=== PATIENT | male | born 1955 | race African-American/Black ===

== ENCOUNTER → 2018-05-12 | Outpatient (CLI) | payer MEDICARE, OTHER ==
[2014-07-15 11:12] VITALS: BP 142/102
[~2018-05-12] MED LIST: ALPR1TAB2 PO; AMLO10TA8 PO; OXYC1TAB22 PO; TAMS0.4C97 PO; TRIA1TAB2 PO
--- NOTE | 2018-05-12 13:12 | RAD ---
Indication:PAIN RIGHT KNEE NO KNOWN INJURY TECHNIQUE: 3 views of the right knee COMPARISON:None FINDINGS: No acute fracture or dislocation. Mild tricompartmental osteoarthritis trace suprapatellar effusion. 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 IMPRESSION: Minimal tricompartmental osteoarthritis. Electronically signed by: Da Conner DO (05/12/2018 1:07 PM) [id number]
== END | disposition home or self-care (01) ==
LOC: RAD 11:25
PROVIDERS: ATTEND Nurse Practitioner Family
DX: M17.11 Unilateral primary osteoarthritis, right knee (principal); I70.8 Atherosclerosis of other arteries
CPT/HCPCS: 73562

== ENCOUNTER 2018-10-12 02:16 | Emergency (ER) | payer MEDICARE, OTHER ==
[~2018-10-12] VITALS: Ht 175.3 cm; Wt 86.2 kg
[2018-10-12 03:11] LABS: BASO # 0.1 x10^3/uL (0.0-0.2); BASO % 2 % (0-3); EOS # 0.1 x10^3/uL (0.0-0.7); EOS % 2 % (0-3); HEMOGLOBIN 12.6 g/dL (13.0-17.5); LYMPH # 1.2 x10^3/uL (1.0-4.8); LYMPH % 30 % (24-48); MEAN CORPUSCULAR HEMOGLOBIN 26 pg (25-35); MEAN CORPUSCULAR HGB CONC 33 g/dL (31-37); MEAN CORPUSCULAR VOLUME 79 fL (79-100); MONO # 0.4 x10^3/uL (0.0-1.1); MONO % 10 % (0-9); NEUT # 2.4 x10^3uL (1.8-7.7); NEUT % 57 % (31-73); PLATELET COUNT 338 x10^3/uL (140-400); RED BLOOD COUNT 4.79 x10^6/uL (4.30-5.70); WHITE BLOOD COUNT 4.2 x10^3/uL (4.0-11.0)
[2018-10-12 03:11] LABS: BILIRUBIN,URINE NEGATIVE (NEG); CLARITY,URINE CLEAR; COLOR,URINE YELLOW; NITRITE,URINE NEGATIVE (NEG); PROTEIN,URINE NEGATIVE (NEG-TRACE); UROBILINOGEN,URINE 0.2 mg/dL (0.2 mg/dL)
[2018-10-12 03:29] LABS: BACTERIA,URINE 0 /HPF (0-FEW); RBC,URINE OCC /HPF (0-2); SQUAMOUS EPITHELIAL CELL,UR OCC /LPF; WBC,URINE 0 /HPF (0-4)
[2018-10-12] MEDS ORDERED: fentaNYL PF VIAL 100 MCG/2 ML VIAL IV ONE (03:30)
[2018-10-12] MEDS ORDERED: IV NORMAL SALINE 1000ML BAG 1,000 ML IV ONE (03:30)
[2018-10-12 03:48] LABS: CALCIUM 8.4 mg/dL (8.5-10.1); CREATININE 1.3 mg/dL (0.7-1.3); GFR 67.7; POTASSIUM 3.4 mmol/L (3.5-5.1)
[2018-10-12 03:53] LABS: ALBUMIN 3.6 g/dL (3.4-5.0); ALBUMIN/GLOBULIN RATIO 1.1 (1.0-1.7); TOTAL BILIRUBIN 0.8 mg/dL (0.2-1.0); TOTAL PROTEIN 6.9 g/dL (6.4-8.2)
[2018-10-12 04:30] VITALS: BP 164/85
[2018-10-12] MEDS ORDERED: CONTRAST GIVEN. MC PRN (04:30)
[2018-10-12] MEDS ORDERED: IOHEXOL 300 MG/ML 100ML VIAL. IV ONE (05:00)
--- NOTE | 2018-10-12 05:04 | RAD ---
INDICATION: Left lower quadrant pain and constipation COMPARISON: January 2014 TECHNIQUE: Axial CT images obtained through the abdomen and pelvis with contrast. One or more of the following individualized dose reduction techniques were utilized for this examination: 1. Automated exposure control; 2. Adjustment of the mA and/or kV according to patient size; 3. Use of iterative reconstruction technique. FINDINGS: Scattered calcific atherosclerosis. No intrahepatic bile duct dilation. The pancreas enhances. Spleen unremarkable. Left sided perinephric fluid with some prominence the left ureter. 2 mm calcification within the urinary bladder. No right-sided hydronephrosis. Colonic diverticulosis. Appendix without definite adjacent inflammatory changes. No dilated loops of bowel to suggest obstruction. Degenerative changes the spine with multilevel central canal and neural foraminal stenosis. IMPRESSION: 1. Edema and fluid is seen adjacent to left kidney with some prominence of the left ureter. There is also a 2 mm calcification seen within the urinary bladder. This could be secondary to causes such as a recently passed left ureter stone with calyceal rupture. Would also correlate with symptoms and lab markers to ensure that there is not infectious etiology. Electronically signed by: Glen Wagner MD (10/12/2018 5:01 AM) [facility]
[2018-10-12] MEDS ORDERED: HYDR-3164 PO (05:16)
[2018-10-12] MEDS ORDERED: TAMS0.4C97 PO (05:17)
[2018-10-12] MEDS ORDERED: CEPH500C PO (05:17)
--- NOTE | 2018-10-12 05:52 | PHYS DOC ---
Past Medical History Past Medical History: Anxiety, Bipolar, Constipation, CVA, Depression, GERD, Hypertension Past Surgical History: Other Additional Past Surgical Histo: inguinal hernia repair Alcohol Use: None Drug Use: None, Cocaine Adult General Chief Complaint Chief Complaint: ABDOMINAL PAIN HPI HPI Patient is a 63 year old male presents with left lower quadrant pain times one day worse last couple hours rates the left flank no dysuria but feels the sensation of having to empty his bladder but cannot do so also was having some tenesmus sharp worse with time Review of Systems Review of Systems Constitutional: Denies fever or chills [] Eyes: Denies change in visual acuity, redness, or eye pain [] HENT: Denies nasal congestion or sore throat [] Respiratory: Denies cough or shortness of breath [] Cardiovascular: No additional information not addressed in HPI [] Integument: Denies rash or skin lesions [] Neurologic: Denies headache, focal weakness or sensory changes [] Endocrine: Denies polyuria or polydipsia [] All other systems were reviewed and found to be within normal limits, except as documented in this note. Current Medications Current Medications Current Medications Medications (Trade) Dose Ordered Sig/Grace Start Time Stop Time Status Last Admin Dose Admin Fentanyl Citrate (Fentanyl 2ml Vial) 50 mcg 1X ONCE 10/12/18 03:30 10/12/18 03:31 DC 10/12/18 03:18 50 MCG Info (CONTRAST GIVEN -- Rx MONITORING) 1 each PRN DAILY PRN 10/12/18 04:30 10/12/18 05:29 DC Iohexol (Omnipaque 300 Mg/ml) 75 ml 1X ONCE 10/12/18 05:00 10/12/18 05:01 DC 10/12/18 04:26 75 ML Sodium Chloride 1,000 ml @ 1,000 mls/hr 1X ONCE 10/12/18 03:30 10/12/18 04:29 DC 10/12/18 03:16 1,000 MLS/HR Allergies Allergies Allergies Coded Allergies Type Severity Reaction Last Updated Verified No Known Drug Allergies 05/03/13 No Physical Exam Physical Exam Constitutional: Well developed, well nourished, no acute distress, non-toxic appearance. [] HENT: Normocephalic, atraumatic, bilateral external ears normal, oropharynx moist, no oral exudates, nose normal. [] Eyes: PERRLA, EOMI, conjunctiva normal, no discharge. [] Neck: Normal range of motion, no tenderness, supple, no stridor. [] Cardiovascular:Heart rate regular rhythm, no murmur [] Lungs & Thorax: Bilateral breath sounds clear to auscultation [] Abdomen: Bowel sounds normal, soft, mild left lower quadrant tenderness, no masses, no pulsatile masses. [] Skin: Warm, dry, no erythema, no rash. [] Back: No tenderness, no CVA tenderness. [] Extremities: No tenderness, no cyanosis, no clubbing, ROM intact, no edema. [] Neurologic: Alert and oriented X 3, normal motor function, normal sensory function, no focal deficits noted. [] Psychologic: Affect normal, judgement normal, mood normal. [] Current Patient Data Vital Signs Vital Signs Date Time Temp Pulse Resp B/P (MAP) Pulse Ox O2 Delivery O2 Flow Rate FiO2 10/12/18 04:30 68 18 164/85 (111) 99 Room Air 10/12/18 02:38 97.9 97.9 Lab Values Laboratory Tests Test 10/12/18 02:26 10/12/18 02:35 10/12/18 03:30 Urine Collection Type Unknown Urine Color Yellow Urine Clarity Clear Urine pH 7.0 Urine Specific [place] 1.020 Urine Protein Negative mg/dL (NEG-TRACE) Urine Glucose (UA) Negative mg/dL (NEG) Urine Ketones (Stick) Negative mg/dL (NEG) Urine Blood Negative (NEG) Urine Nitrite Negative (NEG) Urine Bilirubin Negative (NEG) Urine Urobilinogen Dipstick 0.2 mg/dL (0.2 mg/dL) Urine Leukocyte Esterase Negative (NEG) Urine RBC Occ /HPF (0-2) Urine WBC 0 /HPF (0-4) Urine Squamous Epithelial Cells Occ /LPF Urine Bacteria 0 /HPF (0-FEW) White Blood Count 4.2 x10^3/uL (4.0-11.0) Red Blood Count 4.79 x10^6/uL (4.30-5.70) Hemoglobin 12.6 g/dL (13.0-17.5) L Hematocrit 38.0 % (39.0-53.0) L Mean Corpuscular Volume 79 fL (79-100) Mean Corpuscular Hemoglobin 26 pg (25-35) Mean Corpuscular Hemoglobin Concent 33 g/dL (31-37) Red Cell Distribution Width 15.0 % (11.5-14.5) H Platelet Count 338 x10^3/uL (140-400) Neutrophils (%) (Auto) 57 % (31-73) Lymphocytes (%) (Auto) 30 % (24-48) Monocytes (%) (Auto) 10 % (0-9) H Eosinophils (%) (Auto) 2 % (0-3) Basophils (%) (Auto) 2 % (0-3) Neutrophils # (Auto) 2.4 x10^3uL (1.8-7.7) Lymphocytes # (Auto) 1.2 x10^3/uL (1.0-4.8) Monocytes # (Auto) 0.4 x10^3/uL (0.0-1.1) Eosinophils # (Auto) 0.1 x10^3/uL (0.0-0.7) Basophils # (Auto) 0.1 x10^3/uL (0.0-0.2) Sodium Level 141 mmol/L (136-145) Potassium Level 3.4 mmol/L (3.5-5.1) L Chloride Level 106 mmol/L (98-107) Carbon Dioxide Level 29 mmol/L (21-32) Anion Gap 6 (6-14) Blood Urea Nitrogen 19 mg/dL (8-26) Creatinine 1.3 mg/dL (0.7-1.3) Estimated GFR (Cockcroft-Gault) 67.7 BUN/Creatinine Ratio 15 (6-20) Glucose Level 119 mg/dL (70-99) H Calcium Level 8.4 mg/dL (8.5-10.1) L Total Bilirubin 0.8 mg/dL (0.2-1.0) Aspartate Amino Transferase (AST) 26 U/L (15-37) Alanine Aminotransferase (ALT) 27 U/L (16-63) Alkaline Phosphatase 84 U/L (46-116) Total Protein 6.9 g/dL (6.4-8.2) Albumin 3.6 g/dL (3.4-5.0) Albumin/Globulin Ratio 1.1 (1.0-1.7) Laboratory Tests 10/12/18 02:35 Laboratory Tests 10/12/18 03:30 EKG EKG [] Radiology/Procedures Radiology/Procedures [] Impressions: IMPRESSION: 1. Edema and fluid is seen adjacent to left kidney with some prominence of the left ureter. There is also a 2 mm calcification seen within the urinary bladder. This could be secondary to causes such as a recently passed left ureter stone with calyceal rupture. Would also correlate with symptoms and lab markers to ensure that there is not infectious etiology. Electronically signed by: Glen Wagner MD (10/12/2018 5:01 AM) [facility] Course & Med Decision Making Course & Med Decision Making Pertinent Labs and Imaging studies reviewed. (See chart for details) []Noted CT findings probably patient just had a passed kidney stone. Given the edema around the kidney we will cover with some antibiotics a little urinalysis was negative in condition prescription for Flomax and some pain medication as needed return precautions were discussed in detail patient voiced understanding. He felt much much better at the time of discharge he said his pain went away completely. Dragon Disclaimer Dragon Disclaimer This electronic medical record was generated, in whole or in part, using a voice recognition dictation system. Departure Departure Impression: Primary Impression: Nephrolithiasis Disposition: HOME, SELF-CARE Condition: STABLE Patient Instructions: Kidney Stones, Krbi-[id number] Scripts Cephalexin (CEPHALEXIN) 500 Mg Capsule 1 CAP PO TID, #30 CAP Prov: GEOVANI GARCIA MD 10/12/18 Tamsulosin Hcl (FLOMAX) 0.4 Mg Cap.er.24h 1 CAP PO DAILY, #10 CAP 0 Refills Prov: GEOVANI GARCIA MD 10/12/18 Hydrocodone/Apap 5-325 (NORCO 5-325 TABLET) 1 Each Tablet 1-2 EACH PO PRN Q6HRS PRN for PAIN, #10 as needed for pain Prov: GEOVANI GARCIA MD 10/12/18 GEOVANI GARCIA MD Oct 12, 2018 05:52
== END 2018-10-12 05:26 | disposition home or self-care (01) ==
LOC: ER 02:16
DX: N20.0 Calculus of kidney (principal); K21.9 Gastro-esophageal reflux disease without esophagitis; I10 Essential (primary) hypertension; Z86.73 Personal history of transient ischemic attack (TIA), and cerebral infarction without residual deficits
CPT/HCPCS: 36415; 74177; 80053; 81001; 85025; 96374; 99285; J3010; J7030; Q9967

== ENCOUNTER 2019-01-18 05:45 | Emergency (ER) | payer OTHER, MEDICARE ==
[~2019-01-18] VITALS: Ht 177.8 cm; Wt 79.4 kg
[~2019-01-18 05:45] MED LIST changes: +CEPH500C PO; +HYDR-3164 PO
--- NOTE | 2019-01-18 06:14 | PHYS DOC ---
Past Medical History Past Medical History: Anxiety, Bipolar, Constipation, CVA, Depression, GERD, Hypertension Additional Past Medical Histor: URINARY RETENTION Past Surgical History: Other Additional Past Surgical Histo: inguinal hernia repair Alcohol Use: None Drug Use: None, Cocaine Adult General Chief Complaint Chief Complaint: DIZZY/LIGHT HEADED HPI HPI 63-year-old male presents to the emergency department with dizziness, lightheadedness. Patient states this started approximately 2 days ago has been off and on. He describes waking up at times having difficulty with gait and falling into the wall because he is so dizzy. She denies any nausea, vomiting, chest pain, shortness of breath, headache. He does complain of congestion, popping in his ears, and voice changes with phlegm. Patient denies any fever. Change in position makes his symptoms worse. Review of Systems Review of Systems Constitutional: Denies fever or chills [] Eyes: Dizziness HENT: Nasal congestion, Respiratory: Denies cough or shortness of breath [] Cardiovascular: No additional information not addressed in HPI [] GI: Denies abdominal pain, + nausea, no vomiting, bloody stools or diarrhea [] Musculoskeletal: Denies back pain or joint pain [] Integument: Denies rash or skin lesions [] Neurologic: Denies headache, focal weakness [] All other systems were reviewed and found to be within normal limits, except as documented in this note. Current Medications Current Medications Current Medications Medications (Trade) Dose Ordered Sig/[facility] Start Time Stop Time Status Last Admin Dose Admin Amlodipine Besylate (Norvasc) 10 mg 1X ONCE 01/18/19 06:30 01/18/19 06:31 DC 01/18/19 06:21 10 MG Allergies Allergies Allergies Coded Allergies Type Severity Reaction Last Updated Verified No Known Drug Allergies 05/03/13 No Physical Exam Physical Exam Constitutional: Well developed, well nourished, no acute distress, non-toxic appearance. [] HENT: Normocephalic, atraumatic, bilateral external ears normal, oropharynx moist, no oral exudates, nose normal. [] Eyes: PERRLA, EOMI, minimal horizontal nystagmus appreciated, conjunctiva normal, no discharge. [] Neck: Normal range of motion, no tenderness, supple, no stridor. [] Cardiovascular:Heart rate regular rhythm, no murmur [] Lungs & Thorax: Bilateral breath sounds clear to auscultation [] Abdomen: Bowel sounds normal, soft, no tenderness, no masses, no pulsatile masses. [] Skin: Warm, dry, no erythema, no rash. [] Back: No tenderness, no CVA tenderness. [] Extremities: No tenderness, no edema. [] Neurologic: Alert and oriented X 3, no focal deficits noted, normal finger to nose exam, normal rapid alternating movements on exam[] Psychologic: Affect normal, judgement normal, mood normal. [] Current Patient Data Vital Signs Vital Signs Date Time Temp Pulse Resp B/P (MAP) Pulse Ox O2 Delivery O2 Flow Rate FiO2 01/18/19 06:21 74 163/84 01/18/19 05:56 97.5 16 98 Room Air 97.5 Lab Values Laboratory Tests Test 01/18/19 05:50 White Blood Count 4.1 x10^3/uL (4.0-11.0) Red Blood Count 4.98 x10^6/uL (4.30-5.70) Hemoglobin 13.1 g/dL (13.0-17.5) Hematocrit 39.6 % (39.0-53.0) Mean Corpuscular Volume 80 fL (79-100) Mean Corpuscular Hemoglobin 26 pg (25-35) Mean Corpuscular Hemoglobin Concent 33 g/dL (31-37) Red Cell Distribution Width 15.4 % (11.5-14.5) H Platelet Count 271 x10^3/uL (140-400) Neutrophils (%) (Auto) 53 % (31-73) Lymphocytes (%) (Auto) 33 % (24-48) Monocytes (%) (Auto) 10 % (0-9) H Eosinophils (%) (Auto) 2 % (0-3) Basophils (%) (Auto) 1 % (0-3) Neutrophils # (Auto) 2.2 x10^3/uL (1.8-7.7) Lymphocytes # (Auto) 1.4 x10^3/uL (1.0-4.8) Monocytes # (Auto) 0.4 x10^3/uL (0.0-1.1) Eosinophils # (Auto) 0.1 x10^3/uL (0.0-0.7) Basophils # (Auto) 0.1 x10^3/uL (0.0-0.2) Sodium Level 143 mmol/L (136-145) Potassium Level 3.5 mmol/L (3.5-5.1) Chloride Level 108 mmol/L (98-107) H Carbon Dioxide Level 29 mmol/L (21-32) Anion Gap 6 (6-14) Blood Urea Nitrogen 16 mg/dL (8-26) Creatinine 0.8 mg/dL (0.7-1.3) Estimated GFR (Cockcroft-Gault) 118.5 BUN/Creatinine Ratio 20 (6-20) Glucose Level 106 mg/dL (70-99) H Calcium Level 8.7 mg/dL (8.5-10.1) Total Bilirubin 0.5 mg/dL (0.2-1.0) Aspartate Amino Transferase (AST) 24 U/L (15-37) Alanine Aminotransferase (ALT) 24 U/L (16-63) Alkaline Phosphatase 89 U/L (46-116) Total Protein 6.8 g/dL (6.4-8.2) Albumin 3.4 g/dL (3.4-5.0) Albumin/Globulin Ratio 1.0 (1.0-1.7) Laboratory Tests 01/18/19 05:50 Laboratory Tests 01/18/19 05:50 EKG EKG EKG reviewed, heart rate 62, normal sinus rhythm, no evidence of acute ST elevation or acute change. Right axis deviation[] Interpretation Time: Interpretation time 0 629 Radiology/Procedures Radiology/Procedures [facility] [address] [place], [place] [id number] IMAGING REPORT Signed PATIENT: VJ NEAL ACCOUNT: [id number] : 1955 LOCATION: ER AGE: 63 SEX: M EXAM STATUS: PRE ER ORD. PHYSICIAN: MALINI JJ MD REASON: dizziness PROCEDURE: CT HEAD WO CONTRAST CT head without contrast: Reason for examination: Dizziness. Axial images were obtained through the brain. No contrast was administered. Exposure: One or more of the following individualized dose reduction techniques were utilized for this examination: 1. Automated exposure control 2. Adjustment of the mA and/or kV according to patient size 3. Use of iterative reconstruction technique. Ventricular systems are symmetric and not dilated. No midline shift is seen. There is no evidence of intracranial hemorrhage, infarct, mass or edema. No abnormalities of seen at the orbits. The paranasal sinuses and mastoid air cells are clear. No acute abnormality seen in the skull. IMPRESSION: No acute intracranial abnormality evident. Electronically signed by: Adilene Menon MD (01/18/2019 6:50 AM) [facility] DICTATED and SIGNED BY: ADILENE MENON MD DATE: 01/18/19 0650 [] Course & Med Decision Making Course & Med Decision Making Pertinent Labs and Imaging studies reviewed. (See chart for details) [] Dragon Disclaimer Dragon Disclaimer This electronic medical record was generated, in whole or in part, using a voice recognition dictation system. NIHSS Stroke Scale NIH Stroke Scale: NIH Stroke Scale Response (Comments) Value Level of Consciousness: 0 Alert/Responsive 0 LOC Questions: 0 Answers both correctly 0 LOC Commands: 0 Performs both tasks 0 Best Gaze: 0 Normal 0 Visual: 0 No visual loss 0 Facial Palsy: 0 Normal, symmetrical 0 Motor - Left Arm 0 No drift 0 Motor - Right Arm 0 No drift 0 Motor - Left Leg 0 No drift 0 Motor: Right Leg 0 No drift 0 Limb Ataxia: 0 Absent 0 Sensory: 0 No loss 0 Best Language: 0 Normal 0 Dysathria: 0 Normal 0 Extinction and Inattention: 0 Normal 0 Total 0 Departure Departure Impression: Primary Impression: Vertigo Additional Impression: Hypertension Disposition: 01 HOME, SELF-CARE Condition: STABLE Referrals: LUIS MUÑOZ MD (PCP) Patient Instructions: Vertigo, [id number] Additional Instructions: Recommend follow up with PCP 3 - 5 days Return to the ER with worsening symptoms, intractable pain, fever, altered mental status Tylenol/Motrin as needed for pain Take medications as prescribed Scripts Fluticasone Propionate (Flonase Allergy Relief) 9.9 Ml [place].susp 2 SPRAYS NS DAILY, #1 BOTTLE Prov: MALINI JJ MD 01/18/19 Meclizine Hcl (MECLIZINE HCL) 25 Mg Tablet 0.5 TAB PO TID for dizziness, #20 TAB Prov: MALINI JJ MD 01/18/19 Problem Qualifiers MALINI JJ MD Jan 18, 2019 06:14
[2019-01-18 06:24] LABS: BASO # 0.1 x10^3/uL (0.0-0.2); BASO % 1 % (0-3); EOS # 0.1 x10^3/uL (0.0-0.7); EOS % 2 % (0-3); HEMATOCRIT 39.6 % (39.0-53.0); HEMOGLOBIN 13.1 g/dL (13.0-17.5); LYMPH # 1.4 x10^3/uL (1.0-4.8); LYMPH % 33 % (24-48); MEAN CORPUSCULAR HEMOGLOBIN 26 pg (25-35); MEAN CORPUSCULAR HGB CONC 33 g/dL (31-37); MEAN CORPUSCULAR VOLUME 80 fL (79-100); MONO # 0.4 x10^3/uL (0.0-1.1); MONO % 10 % (0-9); NEUT # 2.2 x10^3/uL (1.8-7.7); NEUT % 53 % (31-73); PLATELET COUNT 271 x10^3/uL (140-400); RED BLOOD COUNT 4.98 x10^6/uL (4.30-5.70); RED CELL DISTRIBUTION WIDTH 15.4 % (11.5-14.5); WHITE BLOOD COUNT 4.1 x10^3/uL (4.0-11.0)
[2019-01-18 06:29] LABS: CALCIUM 8.7 mg/dL (8.5-10.1); CREATININE 0.8 mg/dL (0.7-1.3); GFR 118.5; POTASSIUM 3.5 mmol/L (3.5-5.1)
[2019-01-18] MEDS ORDERED: amLODIPine BESYLATE 5 MG TABLET PO ONE (06:30)
[2019-01-18 06:35] LABS: ALBUMIN 3.4 g/dL (3.4-5.0); TOTAL BILIRUBIN 0.5 mg/dL (0.2-1.0); TOTAL PROTEIN 6.8 g/dL (6.4-8.2)
--- NOTE | 2019-01-18 06:45 | EKG ---
[facility] [address] [place] [address] Test Date: 2019-01-18 Test Time: 05:47:38 Pat Name: VJ NEAL Department: Room: Gender: M [employer] Technician: : 1955 Requested By: MALINI JJ Order Number: [id number] Reading MD: Measurements Intervals [place] Rate: 62 P: -52 GA: 148 QRS: 93 QRSD: 86 T: 64 QT: 394 QTc: 402 Interpretive Statements SINUS RHYTHM RIGHTWARD AXIS T ABNORMALITY IN ANTERIOR LEADS ABNORMAL ECG RI6.01 No previous ECG available for comparison
--- NOTE | 2019-01-18 06:53 | RAD ---
CT head without contrast: Reason for examination: Dizziness. Axial images were obtained through the brain. No contrast was administered. Exposure: One or more of the following individualized dose reduction techniques were utilized for this examination: 1. Automated exposure control 2. Adjustment of the mA and/or kV according to patient size 3. Use of iterative reconstruction technique. Ventricular systems are symmetric and not dilated. No midline shift is seen. There is no evidence of intracranial hemorrhage, infarct, mass or edema. No abnormalities of seen at the orbits. The paranasal sinuses and mastoid air cells are clear. No acute abnormality seen in the skull. IMPRESSION: No acute intracranial abnormality evident. Electronically signed by: Adilene Burrows MD (01/18/2019 6:50 AM) [facility]
[2019-01-18] MEDS ORDERED: FLUT9.9S NS (07:03)
[2019-01-18] MEDS ORDERED: MECL25TA3 PO (07:03)
[2019-01-18 07:06] VITALS: BP 154/89
[2019-01-18] MEDS ORDERED: MECLIZINE HCL 12.5 MG TABLET. PO ONE (07:15)
== END 2019-01-18 07:20 | disposition home or self-care (01) ==
LOC: ER 05:45
DX: R42 Dizziness and giddiness (principal); I10 Essential (primary) hypertension; R09.81 Nasal congestion; F41.9 Anxiety disorder, unspecified; F31.9 Bipolar disorder, unspecified; K21.9 Gastro-esophageal reflux disease without esophagitis; Z86.73 Personal history of transient ischemic attack (TIA), and cerebral infarction without residual deficits
CPT/HCPCS: 36415; 70450; 80053; 85025; 93005; 99285; J8597

== ENCOUNTER 2019-01-30 08:07 | Emergency (ER) | payer OTHER ==
[~2019-01-30] VITALS: Ht 182.9 cm; Wt 79.4 kg
[~2019-01-30 08:07] MED LIST changes: +FLUT9.9S NS; +MECL25TA3 PO
--- NOTE | 2019-01-30 08:30 | PHYS DOC ---
Past Medical History Past Medical History: Anxiety, Bipolar, Constipation, CVA, Depression, GERD, Hypertension Additional Past Medical Histor: URINARY RETENTION Past Surgical History: Other Additional Past Surgical Histo: inguinal hernia repair Alcohol Use: None Drug Use: None, Cocaine Adult General Chief Complaint Chief Complaint: MUSCLE SPASM/CRAMP [facility] HPI 63-year-old male presents to the emergency department with complaints of cramping all over. Patient states this has been ongoing 2 weeks of worsening last couple days. He denies any nausea, vomiting, diarrhea, chest pain, shortness breath, abdominal pain. Nothing makes his pain worse or better. Patient states he attempted to call his PCP however was unable to get in until Friday. Review of Systems Review of Systems Constitutional: Denies fever or chills [] Respiratory: Denies cough or shortness of breath [] Cardiovascular: No additional information not addressed in HPI [] GI: Denies abdominal pain, nausea, vomiting, bloody stools or diarrhea [] Musculoskeletal: muscle cramps Integument: Denies rash or skin lesions [] Neurologic: Denies headache, focal weakness or sensory changes [] All other systems were reviewed and found to be within normal limits, except as documented in this note. Allergies Allergies Allergies Coded Allergies Type Severity Reaction Last Updated Verified No Known Drug Allergies 05/03/13 No Physical Exam Physical Exam Constitutional: Well developed, well nourished, no acute distress, non-toxic appearance. [] HENT: Normocephalic, atraumatic, bilateral external ears normal, oropharynx moist, no oral exudates, nose normal. [] Eyes: PERRLA, EOMI, conjunctiva normal, no discharge. [] Cardiovascular:Heart rate regular rhythm, no murmur [] Lungs & Thorax: Bilateral breath sounds clear to auscultation [] Abdomen: Bowel sounds normal, soft, no tenderness, no masses, no pulsatile masses. [] Skin: Warm, dry, no erythema, no rash. [] Back: No tenderness, no CVA tenderness. [] Extremities: No tenderness, no edema. [] Neurologic: Alert and oriented X 3, no focal deficits noted. [] Psychologic: Affect normal, judgement normal, mood normal. [] Current Patient Data Vital Signs Vital Signs Date Time Temp Pulse Resp B/P (MAP) Pulse Ox O2 Delivery O2 Flow Rate FiO2 01/30/19 08:20 98.1 69 18 153/85 (107) 95 Room Air 98.1 Lab Values Laboratory Tests Test 01/30/19 08:25 01/30/19 08:36 Urine Collection Type Unknown Urine Color Yellow Urine Clarity Clear Urine pH 6.5 Urine Specific [place] 1.020 Urine Protein Negative mg/dL (NEG-TRACE) Urine Glucose (UA) Negative mg/dL (NEG) Urine Ketones (Stick) Negative mg/dL (NEG) Urine Blood Negative (NEG) Urine Nitrite Negative (NEG) Urine Bilirubin Negative (NEG) Urine Urobilinogen Dipstick 1.0 mg/dL (0.2 mg/dL) Urine Leukocyte Esterase Negative (NEG) Urine RBC 0 /HPF (0-2) Urine WBC 0 /HPF (0-4) Urine Squamous Epithelial Cells Few /LPF Urine Bacteria 0 /HPF (0-FEW) White Blood Count 3.3 x10^3/uL (4.0-11.0) L Red Blood Count 5.27 x10^6/uL (4.30-5.70) Hemoglobin 13.9 g/dL (13.0-17.5) Hematocrit 41.8 % (39.0-53.0) Mean Corpuscular Volume 79 fL (79-100) Mean Corpuscular Hemoglobin 26 pg (25-35) Mean Corpuscular Hemoglobin Concent 33 g/dL (31-37) Red Cell Distribution Width 14.8 % (11.5-14.5) H Platelet Count 280 x10^3/uL (140-400) Neutrophils (%) (Auto) 64 % (31-73) Lymphocytes (%) (Auto) 27 % (24-48) Monocytes (%) (Auto) 8 % (0-9) Eosinophils (%) (Auto) 1 % (0-3) Basophils (%) (Auto) 0 % (0-3) Neutrophils # (Auto) 2.1 x10^3/uL (1.8-7.7) Lymphocytes # (Auto) 0.9 x10^3/uL (1.0-4.8) L Monocytes # (Auto) 0.3 x10^3/uL (0.0-1.1) Eosinophils # (Auto) 0.0 x10^3/uL (0.0-0.7) Basophils # (Auto) 0.0 x10^3/uL (0.0-0.2) Sodium Level 138 mmol/L (136-145) Potassium Level 4.0 mmol/L (3.5-5.1) Chloride Level 103 mmol/L (98-107) Carbon Dioxide Level 27 mmol/L (21-32) Anion Gap 8 (6-14) Blood Urea Nitrogen 17 mg/dL (8-26) Creatinine 0.9 mg/dL (0.7-1.3) Estimated GFR (Cockcroft-Gault) 103.5 BUN/Creatinine Ratio 19 (6-20) Glucose Level 102 mg/dL (70-99) H Calcium Level 8.7 mg/dL (8.5-10.1) Total Bilirubin 1.4 mg/dL (0.2-1.0) H Aspartate Amino Transferase (AST) 28 U/L (15-37) Alanine Aminotransferase (ALT) 18 U/L (16-63) Alkaline Phosphatase 92 U/L (46-116) Creatine Kinase 293 U/L (39-308) Total Protein 7.4 g/dL (6.4-8.2) Albumin 3.8 g/dL (3.4-5.0) Albumin/Globulin Ratio 1.1 (1.0-1.7) Laboratory Tests 01/30/19 08:36 Laboratory Tests 01/30/19 08:36 EKG EKG [] Radiology/Procedures Radiology/Procedures [] Course & Med Decision Making Course & Med Decision Making Pertinent Labs and Imaging studies reviewed. (See chart for details) []63-year-old male presents to the emergency department with complaints of cramping all over. Patient states this has been ongoing 2 weeks of worsening last couple days. He denies any nausea, vomiting, diarrhea, chest pain, shortness breath, abdominal pain. Nothing makes his pain worse or better. Patient states he attempted to call his PCP however was unable to get in until Friday. Labs reviewed - potassium, calcium, CPK within normal limits Unknown cause of spasm Discussed use of muscle relaxer as needed Discussed dc and return precautions Dragon Disclaimer Dragon Disclaimer This electronic medical record was generated, in whole or in part, using a voice recognition dictation system. Departure Departure Impression: Primary Impression: Cramp and spasm Disposition: HOME, SELF-CARE Condition: STABLE Referrals: LUIS MUÑOZ MD (PCP) Patient Instructions: Muscle Cramps Additional Instructions: Recommend follow up with PCP 3 - 5 days Return to the ER with worsening symptoms, intractable pain, fever, altered mental status Tylenol/Motrin as needed for pain Take new medications as prescribed Scripts Cyclobenzaprine Hcl (CYCLOBENZAPRINE HCL) 5 Mg Tablet 1 TAB PO BID for 7 Days, #14 TAB Prov: MALINI JJ MD 01/30/19 MALINI JJ MD Jan 30, 2019 08:30
[2019-01-30 08:35] LABS: BILIRUBIN,URINE NEGATIVE (NEG); CLARITY,URINE CLEAR; COLOR,URINE YELLOW; NITRITE,URINE NEGATIVE (NEG); PH,URINE 6.5; PROTEIN,URINE NEGATIVE (NEG-TRACE)
[2019-01-30 08:39] LABS: RBC,URINE 0 /HPF (0-2)
[2019-01-30 08:40] LABS: BACTERIA,URINE 0 /HPF (0-FEW); SQUAMOUS EPITHELIAL CELL,UR FEW /LPF; WBC,URINE 0 /HPF (0-4)
[2019-01-30 08:48] LABS: BASO % 0 % (0-3); EOS % 1 % (0-3); HEMATOCRIT 41.8 % (39.0-53.0); HEMOGLOBIN 13.9 g/dL (13.0-17.5); LYMPH # 0.9 x10^3/uL (1.0-4.8); LYMPH % 27 % (24-48); MEAN CORPUSCULAR HEMOGLOBIN 26 pg (25-35); MEAN CORPUSCULAR HGB CONC 33 g/dL (31-37); MEAN CORPUSCULAR VOLUME 79 fL (79-100); MONO # 0.3 x10^3/uL (0.0-1.1); MONO % 8 % (0-9); NEUT # 2.1 x10^3/uL (1.8-7.7); NEUT % 64 % (31-73); PLATELET COUNT 280 x10^3/uL (140-400); RED BLOOD COUNT 5.27 x10^6/uL (4.30-5.70); RED CELL DISTRIBUTION WIDTH 14.8 % (11.5-14.5); WHITE BLOOD COUNT 3.3 x10^3/uL (4.0-11.0)
[2019-01-30 08:51] VITALS: BP 135/79
[2019-01-30 08:58] LABS: CALCIUM 8.7 mg/dL (8.5-10.1); CREATININE 0.9 mg/dL (0.7-1.3); GFR 103.5
[2019-01-30 09:03] LABS: ALBUMIN 3.8 g/dL (3.4-5.0); ALBUMIN/GLOBULIN RATIO 1.1 (1.0-1.7); TOTAL BILIRUBIN 1.4 mg/dL (0.2-1.0); TOTAL PROTEIN 7.4 g/dL (6.4-8.2)
[2019-01-30] MEDS ORDERED: CYCL5TAB PO (09:11)
== END 2019-01-30 09:23 | disposition home or self-care (01) ==
LOC: ER 08:07
DX: R25.2 Cramp and spasm (principal)
CPT/HCPCS: 36415; 80053; 81001; 82550; 85025; 99284

== ENCOUNTER 2019-05-07 06:11 | Inpatient (IN) | payer OTHER ==
[~2019-05-07] VITALS: Ht 177.8 cm; Wt 79.0 kg
[~2019-05-07 06:11] MED LIST changes: +CYCL5TAB PO; +MECL-75 PO; -MECL25TA3 PO
[2019-05-07 06:45] LABS: BASO % 1 % (0-3); EOS # 0.1 x10^3/uL (0.0-0.7); EOS % 2 % (0-3); HEMATOCRIT 42.6 % (39.0-53.0); LYMPH # 1.2 x10^3/uL (1.0-4.8); LYMPH % 34 % (24-48); MEAN CORPUSCULAR HEMOGLOBIN 26 pg (25-35); MEAN CORPUSCULAR HGB CONC 33 g/dL (31-37); MEAN CORPUSCULAR VOLUME 80 fL (79-100); MONO # 0.3 x10^3/uL (0.0-1.1); MONO % 8 % (0-9); NEUT # 1.8 x10^3/uL (1.8-7.7); NEUT % 55 % (31-73); PLATELET COUNT 260 x10^3/uL (140-400); RED BLOOD COUNT 5.37 x10^6/uL (4.30-5.70); RED CELL DISTRIBUTION WIDTH 15.1 % (11.5-14.5); WHITE BLOOD COUNT 3.4 x10^3/uL (4.0-11.0)
[2019-05-07 06:54] LABS: CALCIUM 8.6 mg/dL (8.5-10.1); CREATININE 0.8 mg/dL (0.7-1.3); GFR 118.1; POTASSIUM 3.8 mmol/L (3.5-5.1)
--- NOTE | 2019-05-07 06:58 | RAD ---
EXAM: CT Head without IV contrast CLINICAL HISTORY: 2 day history of dizziness COMPARISON: 01/18/2019 TECHNIQUE: Routine CT of the head without contrast. Soft tissues and bone windows were reviewed. RS compliance statement - One or more of the following individualized dose reduction techniques were utilized for this study: 1. Automated exposure control 2. Adjustment of the mA and/or kV according to patient size 3. Use of iterative reconstruction technique FINDINGS: There is no evidence of hemorrhage, mass or extra-axial fluid collection. Winn-white differentiation is maintained with no evidence of edema. There is no mass effect or shift of the intracranial structures. The ventricles, basilar cisterns and cortical sulci are normal in size and configuration for the patients stated age. The cerebellum and brainstem are unremarkable. The calvarium demonstrates no evidence of fracture or focal lesion. There is normal aeration of the visualized paranasal sinuses and mastoid air cells. The visualized portions of the orbits are normal. Atherosclerotic calcifications of the intracranial internal carotid arteries is seen. IMPRESSION: No evidence for acute intracranial process. Electronically signed by: Maximino Thomas MD (05/07/2019 6:55 AM) [facility]
[2019-05-07 07:00] LABS: ALBUMIN 3.4 g/dL (3.4-5.0); ALBUMIN/GLOBULIN RATIO 1.1 (1.0-1.7); MAGNESIUM 1.8 mg/dL (1.8-2.4); TOTAL BILIRUBIN 0.7 mg/dL (0.2-1.0); TOTAL PROTEIN 6.4 g/dL (6.4-8.2)
[2019-05-07 07:06] LABS: PROTHROMBIN TIME PATIENT 12.2 SEC (11.7-14.0)
--- NOTE | 2019-05-07 07:25 | EKG ---
[facility] [address] [place] [address] Test Date: 2019-05-07 Test Time: 06:18:59 Pat Name: VJ NEAL Department: Room: Gender: M [employer]ist: : 1955 Requested By: TABBY FUENTES Order Number: [id number] Reading MD: Measurements Intervals [place] Rate: 55 P: 107 UT: 140 QRS: 101 QRSD: 86 T: 78 QT: 446 QTc: 429 Interpretive Statements SINUS RHYTHM RIGHTWARD AXIS OTHERWISE NORMAL ECG RI6.01 No previous ECG available for comparison
[2019-05-07 07:31] LABS: BILIRUBIN,URINE NEGATIVE (NEG); CLARITY,URINE CLEAR; COLOR,URINE YELLOW; NITRITE,URINE NEGATIVE (NEG); PH,URINE 5.5; PROTEIN,URINE NEGATIVE (NEG-TRACE); UROBILINOGEN,URINE 0.2 mg/dL (0.2 mg/dL)
--- NOTE | 2019-05-07 07:33 | PHYS DOC ---
Past Medical History Past Medical History: Anxiety, Bipolar, Constipation, CVA, Depression, GERD, Hypertension Additional Past Medical Histor: URINARY RETENTION Past Surgical History: Other Additional Past Surgical Histo: inguinal hernia repair Alcohol Use: None Drug Use: None, Cocaine Adult General Chief Complaint Chief Complaint: DIZZY/LIGHT HEADED HPI HPI Patient is a 64 year old male presented to ER today for evaluation of dizziness started 2 days ago. Patient said he was trying to tie his shoe 2 days ago and then started having dizzy. Dizziness gets worse when he walking or when he moves head a certain position. he denies any chest pain, no trouble breathing, no cough. Patient also complaint of frequent urination. Patient has history of vertigo in the past, he was on meclizine in the past. he denies any weakness or numbness anywhere. he denies any trouble speaking, a memory loss. All other ROS is negative unless otherwise noted in HPI Review of Systems Review of Systems See above Current Medications Current Medications Current Medications Medications (Trade) Dose Ordered Sig/Grace Start Time Stop Time Status Last Admin Dose Admin Meclizine HCl (Antivert) 25 mg 1X ONCE 05/07/19 07:45 05/07/19 07:46 DC 05/07/19 07:45 25 MG Ondansetron HCl (Zofran) 4 mg PRN Q8HRS PRN 05/07/19 12:45 05/08/19 12:44 Sodium Chloride 1,000 ml @ 75 mls/hr [id number] 05/07/19 12:32 05/08/19 12:31 Allergies Allergies Allergies Coded Allergies Type Severity Reaction Last Updated Verified No Known Drug Allergies 05/03/13 No Physical Exam Physical Exam See above Constitutional: Well developed, well nourished, no acute distress, non-toxic appearance. [] HENT: Normocephalic, atraumatic, bilateral external ears normal, oropharynx moist, no oral exudates, nose normal. [] Eyes: PERRLA, EOMI, conjunctiva normal, no discharge. [] Neck: Normal range of motion, no tenderness, supple, no stridor. [] Cardiovascular:Heart rate regular rhythm, no murmur [] Lungs & Thorax: Bilateral breath sounds clear to auscultation [] Abdomen: Bowel sounds normal, soft, no tenderness, no masses, no pulsatile wm s. [] Skin: Warm, dry, no erythema, no rash. [] Back: No tenderness, no CVA tenderness. [] Extremities: No tenderness, no cyanosis, no clubbing, ROM intact, no edema. [] Neurologic: Alert and oriented X 3, normal motor function, normal sensory function, no focal deficits noted. [] Psychologic: Affect normal, judgement normal, mood normal. [] Current Patient Data Vital Signs Vital Signs Date Time Temp Pulse Resp B/P (MAP) Pulse Ox O2 Delivery O2 Flow Rate FiO2 05/07/19 11:19 55 100 05/07/19 10:17 16 05/07/19 06:18 96.8 168/105 (126) Room Air 96.8 Lab Values Laboratory Tests Test 05/07/19 06:35 05/07/19 06:50 05/07/19 07:15 05/07/19 07:20 White Blood Count 3.4 x10^3/uL (4.0-11.0) L Red Blood Count 5.37 x10^6/uL (4.30-5.70) Hemoglobin 14.0 g/dL (13.0-17.5) Hematocrit 42.6 % (39.0-53.0) Mean Corpuscular Volume 80 fL (79-100) Mean Corpuscular Hemoglobin 26 pg (25-35) Mean Corpuscular Hemoglobin Concent 33 g/dL (31-37) Red Cell Distribution Width 15.1 % (11.5-14.5) H Platelet Count 260 x10^3/uL (140-400) Neutrophils (%) (Auto) 55 % (31-73) Lymphocytes (%) (Auto) 34 % (24-48) Monocytes (%) (Auto) 8 % (0-9) Eosinophils (%) (Auto) 2 % (0-3) Basophils (%) (Auto) 1 % (0-3) Neutrophils # (Auto) 1.8 x10^3/uL (1.8-7.7) Lymphocytes # (Auto) 1.2 x10^3/uL (1.0-4.8) Monocytes # (Auto) 0.3 x10^3/uL (0.0-1.1) Eosinophils # (Auto) 0.1 x10^3/uL (0.0-0.7) Basophils # (Auto) 0.0 x10^3/uL (0.0-0.2) Sodium Level 140 mmol/L (136-145) Potassium Level 3.8 mmol/L (3.5-5.1) Chloride Level 105 mmol/L (98-107) Carbon Dioxide Level 26 mmol/L (21-32) Anion Gap 9 (6-14) Blood Urea Nitrogen 19 mg/dL (8-26) Creatinine 0.8 mg/dL (0.7-1.3) Estimated GFR (Cockcroft-Gault) 118.1 BUN/Creatinine Ratio 24 (6-20) H Glucose Level 115 mg/dL (70-99) H Calcium Level 8.6 mg/dL (8.5-10.1) Magnesium Level 1.8 mg/dL (1.8-2.4) Total Bilirubin 0.7 mg/dL (0.2-1.0) Aspartate Amino Transferase (AST) 27 U/L (15-37) Alanine Aminotransferase (ALT) 26 U/L (16-63) Alkaline Phosphatase 84 U/L (46-116) Troponin I Quantitative 0.062 ng/mL (0.000-0.055) 0.064 ng/mL (0.000-0.055) AW-Dso-P-Type Natriuretic Peptide 89 pg/mL (0-124) Total Protein 6.4 g/dL (6.4-8.2) Albumin 3.4 g/dL (3.4-5.0) Albumin/Globulin Ratio 1.1 (1.0-1.7) Thyroid Stimulating Hormone (TSH) 0.810 uIU/mL (0.358-3.74) Free Thyroxine 1.13 ng/dL (0.76-1.46) Prothrombin Time 12.2 SEC (11.7-14.0) Prothrombin Time INR 0.9 (0.8-1.1) Activated Partial Thromboplast Time 32 SEC (24-38) Urine Collection Type Unknown Urine Color Yellow Urine Clarity Clear Urine pH 5.5 Urine Specific Waite 1.020 Urine Protein Negative mg/dL (NEG-TRACE) Urine Glucose (UA) Negative mg/dL (NEG) Urine Ketones (Stick) Negative mg/dL (NEG) Urine Blood Negative (NEG) Urine Nitrite Negative (NEG) Urine Bilirubin Negative (NEG) Urine Urobilinogen Dipstick 0.2 mg/dL (0.2 mg/dL) Urine Leukocyte Esterase Negative (NEG) Urine RBC 0 /HPF (0-2) Urine WBC 0 /HPF (0-4) Urine Squamous Epithelial Cells Occ /LPF Urine Bacteria 0 /HPF (0-FEW) Urine Mucus Mod /LPF Urine Opiates Screen Neg (NEG) Urine Methadone Screen Neg (NEG) Urine Barbiturates Neg (NEG) Urine Phencyclidine Screen Neg (NEG) Urine Amphetamine/Methamphetamine Neg (NEG) Urine Benzodiazepines Screen Neg (NEG) Urine Cocaine Screen Neg (NEG) Urine Cannabinoids Screen Neg (NEG) Urine Ethyl Alcohol Neg (NEG) Laboratory Tests 05/07/19 06:35 Laboratory Tests 05/07/19 06:35 EKG EKG ekg was done at 0618, rate of 55 bpm, no stemi, sinus rhythm. [] Radiology/Procedures Radiology/Procedures [][facility] [address] [place] [address] IMAGING REPORT Signed PATIENT: VJ NEAL ACCOUNT: [id number] : 1955 LOCATION: ER AGE: 64 SEX: M EXAM STATUS: REG ER ORD. PHYSICIAN: TABBY FUENTES DO REASON: dizziness for two days PROCEDURE: CT HEAD WO CONTRAST EXAM: CT Head without IV contrast CLINICAL HISTORY: 2 day history of dizziness COMPARISON: 01/18/2019 TECHNIQUE: Routine CT of the head without contrast. Soft tissues and bone windows were reviewed. PQRS compliance statement - One or more of the following individualized dose reduction techniques were utilized for this study: 1. Automated exposure control 2. Adjustment of the mA and/or kV according to patient size 3. Use of iterative reconstruction technique FINDINGS: There is no evidence of hemorrhage, mass or extra-axial fluid collection. Winn-white differentiation is maintained with no evidence of edema. There is no mass effect or shift of the intracranial structures. The ventricles, basilar cisterns and cortical sulci are normal in size and configuration for the patients stated age. The cerebellum and brainstem are unremarkable. The calvarium demonstrates no evidence of fracture or focal lesion. There is normal aeration of the visualized paranasal sinuses and mastoid air cells. The visualized portions of the orbits are normal. Atherosclerotic calcifications of the intracranial internal carotid arteries is seen. IMPRESSION: No evidence for acute intracranial process. Electronically signed by: Maximino Collins MD (05/07/2019 6:55 AM) [facility] DICTATED and SIGNED BY: MAXIMINO COLLINS MD DATE: 05/07/19 0655 Course & Med Decision Making Course & Med Decision Making Pertinent Labs and Imaging studies reviewed. (See chart for details) Patient continue to feel dizzy when he stood up or moving his head, will admit for further evaluation. Dragon Disclaimer Dragon Disclaimer This electronic medical record was generated, in whole or in part, using a voice recognition dictation system. Departure Departure Impression: Primary Impression: Dizziness Disposition: ADMITTED INPATIENT Admitting Physician: KAMRYN (Dr. MUÑOZ) Referrals: LUIS MUÑOZ MD (PCP) TABBY FUENTES DO May 07, 2019 07:33
[2019-05-07 07:39] LABS: FREE T4 1.13 ng/dL (0.76-1.46); THYROID STIM HORMONE (TSH) 0.81 uIU/mL (0.358-3.74)
[2019-05-07 07:41] LABS: AMPHETAMINE/METHAMPHETAMINE NEG (NEG); BARBITURATES NEG (NEG); BENZODIAZEPINES NEG (NEG); CANNABINOIDS NEG (NEG); COCAINE NEG (NEG); METHADONE NEG (NEG); OPIATES NEG (NEG); PHENCYCLIDINE NEG (NEG)
[2019-05-07 07:42] LABS: SQUAMOUS EPITHELIAL CELL,UR OCC /LPF
[2019-05-07] MEDS ORDERED: MECLIZINE HCL 12.5 MG TABLET. PO ONE (07:45)
[2019-05-07 07:46] LABS: BACTERIA,URINE 0 /HPF (0-FEW); RBC,URINE 0 /HPF (0-2); WBC,URINE 0 /HPF (0-4)
[2019-05-07] MEDS ORDERED: ONDANSETRON PF 4 MG/2 ML VIAL. IV PRN (12:45)
[2019-05-07] MEDS: IV NORMAL SALINE 1000ML BAG 1,000 ML IV SCH ×2 (14:55→22:21)
[2019-05-07 15:45] VITALS: BP_SYST 128; BP_SYST 154; BP_SYST 155; BP_DIAS 85; BP_DIAS 95; BP_DIAS 96
[2019-05-07] MEDS ORDERED: ESOM40CA PO (16:49)
--- NOTE | 2019-05-07 18:53 | CONS ---
DATE OF CONSULTATION: 05/07/2019 REASON FOR CONSULTATION: Elevated troponin and dizziness. HISTORY OF PRESENT ILLNESS: The patient is a pleasant 64-year-old man who comes into the hospital in the setting of dizziness. His symptoms are classic for vertigo. He reports that every time he turns his head, he has had dizziness over the last 1-2 weeks. In addition to this, because of prostate issues, he has been on alpha blockers according to him. He specifically denies any chest pain, exertional dyspnea, orthopnea, PND, palpitations or any lower extremity edema. He has refrained from any drug use for several years and has done quite well. Prior evaluation approximately 5-6 years ago revealed a normal myocardial perfusion study and normal echocardiogram and he had an elevated troponin at that time. When he arrived to the hospital, his blood pressure was elevated with a systolic blood pressure above 160. Since then he has not had any significant improvement in his dizziness and has been started on meclizine therapy. PAST MEDICAL HISTORY: 1. Hypertension. 2. Dyslipidemia. 3. Asthma, exercise stress-induced type. 4. Prior history of TIA in 2012. 5. Hepatitis A, B and C. 6. Gastroesophageal reflux disease and hemorrhoids. SOCIAL HISTORY: No alcohol, tobacco or illicit drug use now. He has gone through drug addiction program. PAST SURGICAL HISTORY: Right inguinal hernia repair. FAMILY HISTORY: Noncontributory. CURRENT CARDIOVASCULAR MEDICATIONS: None. ALLERGIES: No known drug allergies. REVIEW OF SYSTEMS: Negative for 10 out of 14 systems reviewed, unless otherwise mentioned above in HPI. PHYSICAL EXAMINATION: VITAL SIGNS: Afebrile, orthostatic vital signs are mildly positive with a systolic blood pressure drop from 154 to 128. CARDIAC: Unremarkable. LUNGS: Clear to auscultation. ABDOMEN: Soft, nontender. EXTREMITIES: 2+ radial and dorsalis pedis pulses. NEUROLOGIC: No focal deficits. MUSCULOSKELETAL: No trauma. DIAGNOSTIC STUDIES: Hemoglobin 14.0, platelet count 260. Troponin mildly elevated at 0.062, otherwise no significant abnormalities noted. Head CT is grossly unremarkable. EKG reveals normal sinus rhythm without any acute ischemic changes. IMPRESSION: 1. Dizziness appears to be vertiginous disease. 2. Elevated troponin, likely secondary to hypertension and microvascular disease. No clear suspicion for epicardial coronary disease given lack of any specific symptoms. 3. Hypertension. 4. Transient ischemic attack. 5. Dyslipidemia. RECOMMENDATIONS: 1. Agree with conservative management and treatment of his vertigo. 2. Repeat one more troponin to ensure that it is downtrending. 3. We will plan for an outpatient ischemic evaluation and echocardiography as necessary based on followup evaluation. Thank you for this consultation. Please call with any further questions. BRANDEN PATRICK MD DR: RENAE/chirag JOB#: [id number] / [id number]
[2019-05-07 19:57] VITALS: BP 138/86
[2019-05-07] MEDS: MECLIZINE HCL 12.5 MG TABLET. PO PRN (22:28)
[2019-05-07 23:03] VITALS: BP 143/77
[2019-05-08 03:59] VITALS: BP 131/84
[2019-05-08] MEDS: MECLIZINE HCL 12.5 MG TABLET. PO PRN ×2 (06:01→14:05)
[2019-05-08 07:20] VITALS: BP 135/86
[2019-05-08 11:01] VITALS: BP 127/76
[2019-05-08] MEDS: PANTOPRAZOLE 40 MG TABLET.DR. PO SCH (11:02)
[2019-05-08] MEDS: FLUTICASONE 50MCG/NASAL SPRAY 16GM BOTTLE. NS SCH (11:03)
[2019-05-08 15:25] VITALS: BP 125/75
[2019-05-08 19:29] VITALS: BP 122/80
--- NOTE | 2019-05-08 21:11 | HP ---
ADMIT DATE: 05/07/2019 CHIEF COMPLAINT AND HISTORY OF PRESENT ILLNESS: This 64-year-old black male presented to the Emergency Room for evaluation of dizziness starting a couple of days prior to admission. His dizziness seems to get worse when he moves his head in a certain position. He describes it as classic vertigo. He denies any cardiac symptoms associated with this and this is not lightheadedness. He does have a history of vertigo in the past, which has been treated with meclizine and improved. He was unable to get any relief in the Emergency Room from the same when he was kept. Denies any tinnitus, hearing changes, diplopia, dysphagia, or dysphasia associated with this. PAST MEDICAL HISTORY: Remarkable for anxiety, depression, constipation, GERD, hypertension, and urinary retention. PAST SURGICAL HISTORY: Remarkable for an inguinal hernia repair. MEDICATIONS: Brought with the patient, listed on computer and have been addressed. ALLERGIES: He has no known drug allergies. SOCIAL HISTORY: He is a former crack cocaine user, but has quit and is now serving the [employer]. He denies abuse of any drugs at this point. Nonsmoker, nondrinker. FAMILY HISTORY: Noncontributory. REVIEW OF SYSTEMS: As mentioned above. PHYSICAL EXAMINATION: GENERAL: He is a well-developed, well-nourished black male in no acute distress, lying in bed. VITAL SIGNS: Stable. He is afebrile. HEAD, EYES, EARS, NOSE AND THROAT: Remarkable for the right nystagmus. NECK: Supple without bruit or thyromegaly. CHEST: Clear to auscultation and percussion. HEART: Regular rate and rhythm without S3, S4 or murmur. ABDOMEN: Soft, nontender, without hepatosplenomegaly or masses. EXTREMITIES: Without cyanosis, clubbing, or edema. NEUROLOGIC: He is intact. Cranial nerves specifically are within normal limits. LABORATORY DATA: Workup in the Emergency Room included a CBC that was essentially unremarkable. Chemistry panel likewise troponin was elevated at 0.06 and Cardiology has been consulted for the same. INR is within normal limits. Urine is clearing. Toxicology screen is completely negative. CT scan of the head done in the Emergency Room shows no evidence of any acute process. IMPRESSION: 1. Incapacitating vertigo. 2. Elevated troponin. PLAN: The patient is admitted. Neurology and Cardiology have been consulted and I am going to start his scheduled meclizine regimen with his nystagmus and the patient will be monitored, managed and treated appropriately. LUIS MUÑOZ MD DR: RESHMA/chirag JOB#: [id number] / [id number]
--- NOTE | 2019-05-08 22:47 | CONS ---
DATE OF CONSULTATION: 05/08/2019 REFERRING PHYSICIAN: Thad Bangura MD REASON FOR CONSULTATION: Vertigo. HISTORY OF PRESENT ILLNESS: The patient is a pleasant 64-year-old man who had vertigo 4 months ago. He was given meclizine and symptoms did improve. After symptoms resolved, he discontinued the meclizine. In the last week and a half symptoms have returned. He started to feel lightheaded. He was at work lifting a box when suddenly he became more dizzy. The room then started to spin around over the next few days. This worsened with any movement. It made it difficult to be up and moving his head. He has since restarted on meclizine. He did not notice improvement after the first dose, but with repeated dosages, the dizziness has improved dramatically and he is able to be up and walk around. This was not associated with any headache, weakness or numbness. PAST MEDICAL HISTORY: 1. Hypertension. 2. Dyslipidemia. 3. Exercise-induced asthma. 4. History of transient ischemic attack, 2013. 5. History of hepatitis A, B and C. 6. Gastroesophageal reflux disease. 7. Hemorrhoids. 8. History of vertigo 4 months ago. ALLERGIES: No known allergies to drugs. MEDICATIONS PRIOR TO ADMISSION: Acetaminophen/hydrocodone 1-2 every 6 hours as needed, amlodipine 10 mg, Nexium, Flonase nasal spray, meclizine 25 mg one half tablet 3 times a day as needed, Percocet 10/325 every 8 hours, tamsulosin 0.4 mg. FAMILY HISTORY: Noncontributory. SOCIAL HISTORY: He does not smoke tobacco, drink alcohol or use recreational drugs. He has gone through drug addiction program with a history of polypharmacy and history of polysubstance abuse. REVIEW OF SYSTEMS: He does not have any headache. There has been no change of vision or hearing. He did have dizziness, vertigo with lightheadedness. He has been able to chew and swallow. He has not had shortness of breath, chest or abdominal pain. He does not complain of bone or joint pain. There has been no fever or rash. He has had 2 weeks of very loose diarrhea. He does have prostatic hypertrophy with some difficulty with urination. He does not complain of any numbness or focal weakness. While dizzy, he had difficulty with balance, but this has improved. He does not have any psychiatric complaints. PHYSICAL EXAMINATION: VITAL SIGNS: The blood pressure was 125/75, pulse 91, respirations 18, temperature 98 degrees Fahrenheit orally. Oximetry was 98% on room air. His weight was 79 kilograms, height 70 inches with a calculated body mass index of 25. GENERAL: He was alert, awake and cooperative. Speech was fluent and clear. He had a good fund of recent and remote knowledge. Attention and concentration was intact. He appeared well groomed and well nourished. He was fully oriented. NEUROLOGIC: Examination of the cranial nerves revealed visual macdonald were full to confrontation. Extraocular movements were intact. The eyes were conjugate. Pursuit movements were smooth and saccadic eye movements were without dysmetria. There was no nystagmus. Pupils were 3 mm and reactive. Funduscopic exam did not reveal papilledema, exudate or hemorrhage. Facial sensation was intact bilaterally. The muscles of mastication and facial expression were powerful symmetrically. Hearing was intact to finger rub. The palate arched symmetrically and the tongue was midline with full motion. Sternocleidomastoid and trapezius were powerful. Muscle bulk and tone was normal. There was no rebound or asterixis. Power was full and symmetric in the upper and lower extremities. Reflexes were 2/4 and symmetric in the upper and lower extremities. The toes were downgoing bilaterally. Coordination testing with [id number], [id number], fine motor and rapid alternating movements was well performed. Sensory examination was intact to pain, light touch, proprioception, graphesthesia, cold thermal and vibration. There was no extinction to double simultaneous stimulation. Gait was of a normal base and steady. He was able to heel, toe, and tandem walk. Romberg stance was negative. Auscultation of the carotid arteries did not reveal a bruit. HEART: Rhythm is regular, without a murmur. EXTREMITIES: Peripheral pulses were symmetric. There was no edema or cyanosis. LABORATORY RESULTS: CBC was performed on 05/07/2019 with a white count of 3.4. Hemoglobin, hematocrit and platelet counts were normal. Chemistries were performed on 05/07/2019 revealed normal electrolytes, BUN and creatinine. The GFR calculated at 118.1. Glucose was 115. Calcium, magnesium, total protein and albumin were normal. Liver enzymes were not elevated. BNP was not elevated. TSH and free T4 were normal. Troponin was elevated at 0.062. Urine drug screen was performed on 05/07/2019 and was negative. Urinalysis was performed on 05/07/2019 and was negative. Coagulation studies were performed on 05/07/2019 with PT/INR of 0.9 and PTT of 32. DIAGNOSTIC RESULTS: CT scan of the brain was performed without contrast on 05/07/2019. This was compared to 01/18/2019. There was no evidence of an acute intracranial process. There was no evidence of chronic stroke. There was normal aeration of the visualized paranasal sinuses and mastoid air cells. IMPRESSION: The patient is a pleasant 64-year-old man who developed vertigo in the last week and a half. It became debilitating and made it difficult to even walk. He was so vertiginous with head movement. My initial concern would have been for stroke. The history is not consistent with stroke and his neurologic exam also does not reveal stroke and the CT head was negative. Symptoms have been present for quite some time prior to presentation. So if these were stroke in the cerebellum, we should have seen it on CAT scan by now. He has responded to meclizine, which he did before when he had a spell 4 months ago. I feel this is a peripheral process. He seems to be improving back to his baseline. He may be dismissed from a neurologic perspective. We did discuss that he should continue meclizine 3 times a day for at least a number of days. If he remains symptom free, he can then go to twice a day and after several days once a day and then after several days discontinue. He can resume the medicine if dizziness returns. I appreciate being involved in his care. BLESSING DAWKINS MD DR: SLICK/chirag JOB#: [id number] / [id number] JOBY León MD, TETO RODRÍGUEZ MD, MD
[2019-05-08 23:26] VITALS: BP 127/76
[2019-05-09 03:34] VITALS: BP 111/70
[2019-05-09] MEDS: MECLIZINE HCL 12.5 MG TABLET. PO SCH ×5 (06:00→22:54)
[2019-05-09 07:00] VITALS: BP 118/65
[2019-05-09] MEDS: FLUTICASONE 50MCG/NASAL SPRAY 16GM BOTTLE. NS SCH (08:47)
[2019-05-09] MEDS: PANTOPRAZOLE 40 MG TABLET.DR. PO SCH (08:47)
--- NOTE | 2019-05-09 10:47 | PDOC ---
GENERAL General: vss and afebrile. awake and alert and laying in bed with incapacitating vertigo currently after decent night. exam stable. will add scopolamine trial. neuro input appreciated. VITAL SIGNS/I&O Vital Signs/I&O: Vital Signs Date Time Temp Pulse Resp B/P (MAP) Pulse Ox O2 Delivery O2 Flow Rate FiO2 05/09/19 07:00 97.7 75 20 118/65 (82) 98 97.7 05/09/19 03:34 Room Air I & O 05/08/19 05/08/19 05/09/19 15:00 23:00 07:00 Intake Total 940 ml 880 ml 750 ml Balance 940 ml 880 ml 750 ml ALLERGIES Allergies: Allergies Coded Allergies Type Severity Reaction Last Updated Verified No Known Drug Allergies 05/03/13 No MEDS Medications: Current Medications Medications (Trade) Dose Ordered Sig/Grace Route PRN Reason Start Time Stop Time Status Last Admin Dose Admin Meclizine HCl (Antivert) 25 mg Q6HRS PO 05/09/19 00:00 05/09/19 06:00 LUIS MUÑOZ MD May 09, 2019 10:47
[2019-05-09] MEDS ORDERED: SCOPOLAMINE 1.5MG PATCH. TD SCH (10:49)
[2019-05-09 11:00] VITALS: BP 138/75
--- NOTE | 2019-05-09 13:57 | PDOC ---
PROGRESS NOTES Assessment 1. The vertigo was bad again this morning. When he stood up he experienced the room spinning. When he sat down improved and about 20 seconds but he still felt a bad feeling in his head. He has continued meclizine. Plan 1. I would like to add low dose Valium to the regimen of meclizine. He should continue with meclizine 25 mg, 3 times per day and Valium 2 mg, 3 times per day. If he's feeling better with this regimen, I would remove the scopolamine patch. Subjective I became so dizzy this morning I felt like I might pass out. It went away after about 20 seconds after I sat down but my head still felt swimmy. Objective Vital Signs Date Time Temp Pulse Resp B/P (MAP) Pulse Ox O2 Delivery O2 Flow Rate FiO2 05/09/19 11:00 97.6 55 18 138/75 (96) 99 Room Air 97.6 Intake and Output 05/09/19 07:00 Intake Total 2570 ml Balance 2570 ml Intake Oral 2570 ml # Voids 2 PHYSICAL EXAM He was alert, awake and cooperative. Speech was fluent and clear. He had a good fund of recent and remote knowledge. Attention and concentration was intact. He appeared well-groomed and well-nourished. The eyes were conjugate and face symmetric. Movements were symmetric and well coordinated. Review of Relevant I have reviewed the following items jairo (where applicable) has been applied. Medications Current Medications Meclizine HCl (Antivert) 25 mg 1X ONCE PO Last administered on 05/07/19at 07:45; Start 05/07/19 at 07:45; Stop 05/07/19 at 07:46; Status DC Ondansetron HCl (Zofran) 4 mg PRN Q8HRS PRN IV NAUSEA/VOMITING Last administered on 05/08/19at 11:02; Start 05/07/19 at 12:45; Stop 05/08/19 at 12:44; Status DC Sodium Chloride 1,000 ml @ 75 mls/hr [id number] IV Last administered on 05/07/19at 22:21; Start 05/07/19 at 12:32; Stop 05/08/19 at 12:31; Status DC Pantoprazole Sodium (Protonix) 40 mg DAILYAC PO Last administered on 05/09/19at 08:47; Start 05/08/19 at 07:30 Fluticasone Propionate (Flonase) 2 spray DAILY NS Last administered on 05/09/19 08:47; Start 05/08/19 at 09:00 Meclizine HCl (Antivert) 25 mg PRN TID PRN PO dizziness Last administered on 05/08/19 14:05; Start 05/07/19 at 18:00; Stop 05/08/19 at 20:05; Status DC Meclizine HCl (Antivert) 25 mg Q6HRS PO Last administered on 05/09/19 11:51; Start 05/09/19 at 00:00 Scopolamine (Transderm-Scop) 1 patch Q3DAYS TD Last administered on 05/09/19 11:52; Start 05/09/19 at 10:49 Active Scripts Active Flonase Allergy Relief (Fluticasone Propionate) 9.9 Ml [place].susp 2 Sprays NS DAILY Meclizine Hcl 25 Mg Tablet 0.5 Tab PO TID Flomax (Tamsulosin Hcl) 0.4 Mg Cap.er.24h 1 Cap PO DAILY [place] 5-325 Tablet (Acetaminophen/Hydrocodone Bitart) 1 Each Tablet 1-2 Each PO PRN Q6HRS PRN as needed for pain Flomax (Tamsulosin Hcl) 0.4 Mg Cap.er.24h 0.4 Mg PO QHS Reported Nexium Capsule (Esomeprazole Magnesium) 40 Mg Capsule.dr 1 Cap PO DAILY Percocet 10-325 Mg Tablet (Oxycodone/Acetaminophen) 1 Each Tablet 1 Tab PO Q8HRS Indication: pain Next dose: 09/23/13 1400 Amlodipine Besylate 10 Mg Tablet 10 Mg PO DAILY Indication: blood pressure Next dose: 09/24/13 am Vitals/I & O Vital Sign - Last 24 Hours 05/08/19 05/08/19 05/08/19 05/09/19 15:25 19:29 23:26 03:34 Temp 98.0 98.4 98.0 98.0 98.0 98.4 98.0 98.0 Pulse 91 72 60 60 Resp 18 18 18 18 B/P (MAP) 125/75 (92) 122/80 (94) 127/76 (93) 111/70 (84) Pulse Ox 98 98 98 100 O2 Delivery Room Air Room Air Room Air Room Air 05/09/19 05/09/19 07:00 11:00 Temp 97.7 97.6 97.7 97.6 Pulse 75 55 Resp 20 18 B/P (MAP) 118/65 (82) 138/75 (96) Pulse Ox 98 99 O2 Delivery Room Air Intake and Output 05/08/19 05/08/19 05/09/19 15:00 23:00 07:00 Intake Total 940 ml 880 ml 750 ml Balance 940 ml 880 ml 750 ml BLESSING DAWKINS MD May 09, 2019 13:56
[2019-05-09 15:00] VITALS: BP 132/80
[2019-05-09] MEDS: diazePAM 2 MG TABLET PO SCH ×2 (15:30→22:54)
[2019-05-09 19:35] VITALS: BP 142/79
[2019-05-09 22:48] VITALS: BP 124/78
[2019-05-10 02:50] VITALS: BP 126/70
[2019-05-10] MEDS: diazePAM 2 MG TABLET PO SCH (06:43)
[2019-05-10] MEDS: FLUTICASONE 50MCG/NASAL SPRAY 16GM BOTTLE. NS SCH (06:43)
[2019-05-10] MEDS: PANTOPRAZOLE 40 MG TABLET.DR. PO SCH (06:43)
[2019-05-10] MEDS: MECLIZINE HCL 12.5 MG TABLET. PO SCH (06:43)
[2019-05-10 07:59] VITALS: BP 132/81
[2019-05-10 11:35] VITALS: BP 124/74
--- NOTE | 2019-05-10 11:59 | PDOC ---
PROGRESS NOTES Assessment Problems Medical Problems: (1) Dizziness Status: Acute Vertigo, peripheral, improved, he had a previous bad of this in January Plan Home on PRN meclizine, discontinue Valium at discharge Considered outpatient ENT consultation I wrote out excuses so that he doesn't have to return to work until 2/6 Follow-up of neurology as needed Subjective Dizziness is better, no tinnitus or hearing loss, no diplopia, dysphagia, dysarthria, numbness, weakness Objective Vital Signs Date Time Temp Pulse Resp B/P (MAP) Pulse Ox O2 Delivery O2 Flow Rate FiO2 05/10/19 11:35 97.7 67 18 124/74 (91) 97 Room Air 97.7 Intake and Output 05/10/19 07:00 Intake Total 1460 ml Balance 1460 ml Intake Oral 1460 ml # Voids 5 PHYSICAL EXAM Alert. Oriented to time, place and person. PERRL. EOMI. No nystagmus CN: no focal findings. Muscle tone: normal. Muscle strength: 5/5 DTR: 2+ Plantar reflex: flexor Gait: essentially normal, just a little unsteady Sensory exam: no abnormal findings. No cerebellar signs elicited. Review of Relevant I have reviewed the following items jairo (where applicable) has been applied. Medications Current Medications Meclizine HCl (Antivert) 25 mg 1X ONCE PO Last administered on 05/07/19at 07:45; Start 05/07/19 at 07:45; Stop 05/07/19 at 07:46; Status DC Ondansetron HCl (Zofran) 4 mg PRN Q8HRS PRN IV NAUSEA/VOMITING Last administered on 05/08/19at 11:02; Start 05/07/19 at 12:45; Stop 05/08/19 at 12:44; Status DC Sodium Chloride 1,000 ml @ 75 mls/hr [id number] IV Last administered on 05/07/19at 22:21; Start 05/07/19 at 12:32; Stop 05/08/19 at 12:31; Status DC Pantoprazole Sodium (Protonix) 40 mg DAILYAC PO Last administered on 05/10/19at 06:43; Start 05/08/19 at 07:30 Fluticasone Propionate (Flonase) 2 spray DAILY NS Last administered on 05/10/19at 06:43; Start 05/08/19 at 09:00 Meclizine HCl (Antivert) 25 mg PRN TID PRN PO dizziness Last administered on 05/08/19 14:05; Start 05/07/19 at 18:00; Stop 05/08/19 at 20:05; Status DC Meclizine HCl (Antivert) 25 mg Q6HRS PO Last administered on 05/09/19at 11:51; Start 05/09/19 at 00:00; Stop 05/09/19 at 14:00; Status DC Scopolamine (Transderm-Scop) 1 patch Q3DAYS TD Last administered on 05/09/19 11:52; Start 05/09/19 at 10:49 Meclizine HCl (Antivert) 25 mg Q8H PO Last administered on 05/10/19 06:43; Start 05/09/19 at 15:00 Diazepam (Valium) 2 mg Q8HRS PO Last administered on 05/10/19 06:43; Start 05/09/19 at 15:00 Active Scripts Active Flonase Allergy Relief (Fluticasone Propionate) 9.9 Ml [place].susp 2 Sprays NS DAILY Meclizine Hcl 25 Mg Tablet 0.5 Tab PO TID [place] 5-325 Tablet (Acetaminophen/Hydrocodone Bitart) 1 Each Tablet 1-2 Each PO PRN Q6HRS PRN as needed for pain Flomax (Tamsulosin Hcl) 0.4 Mg Cap.er.24h 0.4 Mg PO QHS Reported Nexium Capsule (Esomeprazole Magnesium) 40 Mg Capsule.dr 1 Cap PO DAILY Amlodipine Besylate 10 Mg Tablet 10 Mg PO DAILY Indication: blood pressure Next dose: 09/24/13 am Vitals/I & O Vital Sign - Last 24 Hours 05/09/19 05/09/19 05/09/19 05/10/19 15:00 19:35 22:48 02:50 Temp 97.9 98.2 98.3 98.1 97.9 98.2 98.3 98.1 Pulse 65 63 65 58 Resp 14 20 18 18 B/P (MAP) 132/80 (97) 142/79 (100) 124/78 (93) 126/70 (88) Pulse Ox 100 97 99 99 O2 Delivery Room Air Room Air Room Air Room Air 05/10/19 05/10/19 07:59 11:35 Temp 97.5 97.7 97.5 97.7 Pulse 54 67 Resp 18 18 B/P (MAP) 132/81 (98) 124/74 (91) Pulse Ox 99 97 O2 Delivery Room Air Room Air Intake and Output 05/09/19 05/09/19 05/10/19 15:00 23:00 07:00 Intake Total 240 ml 980 ml 240 ml Balance 240 ml 980 ml 240 ml JOBY FITZPATRICK MD May 10, 2019 11:59
--- NOTE | 2019-05-10 12:30 | NUR ---
Patient discharged to home. Discharge instructions, medications, and follow up appointments discussed with patient. Patient verbalized understanding. Discharge packet given to patient. Prescription for Meclizine called to patients pharmacy. IV discontinued. All belongings with patient. Patient ambulated out with staff at this time. Patients friend here to picker packer patient.
--- NOTE | 2019-05-10 23:45 | DS ---
DATE OF DISCHARGE: 05/10/2019 PRIMARY DIAGNOSIS: Incapacitating vertigo from a peripheral source. ADDITIONAL DIAGNOSES: Hypertension, anxiety and depression. CHIEF COMPLAINT AND HISTORY OF PRESENT ILLNESS: This 64-year-old black male is well known to my office. The patient was admitted with incapacitating vertigo through the Emergency Room. He did have some back in January, which responded to meclizine, but did not at this time. SUMMARY OF STAY: The patient was admitted, placed on meclizine. Neurology was consulted. CT scanning of the head was negative. Symptomatology was such that it was not felt to be central in origin, but peripheral. He had specifically no double vision, dysphasia, dysphagia, or drop attacks. He had no tinnitus or change in hearing with the same. Scopolamine and Valium were added during the stay with improvement in his symptoms. Neurology felt he could be dismissed on the day of discharge on meclizine along with calling in some Valium if needed as an outpatient and this was accomplished. DISPOSITION: The patient is discharged to home. DIET: Regular diet. ACTIVITY: As tolerated, office in 1 week. DISCHARGE MEDICATIONS: Regular home meds plus meclizine 25 mg q. 6 p.r.n. dizziness. LUIS MUÑOZ MD DR: RESHMA/chirag JOB#: [id number] / [id number]
== END 2019-05-10 12:54 | disposition home or self-care (01) | DRG 149 ==
LOC: ER 06:11 → ED HOLD 13:31 → 6 SOUTH 16:32 → OBSVTOIN 05-08 20:05
PROVIDERS: ADMIT Family Medicine; ATTEND Family Medicine
DX: R42 Dizziness and giddiness (principal); E78.5 Hyperlipidemia, unspecified; F31.9 Bipolar disorder, unspecified; F41.9 Anxiety disorder, unspecified; I10 Essential (primary) hypertension; K21.9 Gastro-esophageal reflux disease without esophagitis; J45.909 Unspecified asthma, uncomplicated; Y99.0 Civilian activity done for income or pay; Z86.73 Personal history of transient ischemic attack (TIA), and cerebral infarction without residual deficits
CPT/HCPCS: 36415; 70450; 80053; 80307; 81001; 83735; 83880; 84439; 84443; 84484; 85025; 85610; 85730; 93005; G0378; G0379; J2405; J7030; J8597; 99285-25

== ENCOUNTER 2019-05-27 06:39 | Emergency (ER) | payer OTHER ==
[~2019-05-27] VITALS: Ht 177.8 cm; Wt 80.9 kg
[~2019-05-27 06:39] MED LIST changes: +ESOM40CA PO
--- NOTE | 2019-05-27 07:30 | PHYS DOC ---
Past Medical History Past Medical History: Anxiety, Bipolar, Constipation, CVA, Depression, GERD, Hypertension Additional Past Medical Histor: URINARY RETENTION Past Surgical History: Other Additional Past Surgical Histo: inguinal hernia repair Smoking Status: Former Smoker Alcohol Use: None Drug Use: None, Cocaine Adult General Chief Complaint Chief Complaint: FLANK PAIN [facility] HPI Patient is a 64 year old male with a history significant for urinary retention and previous possible ureteral stone without intervention needed for resolution. He presents today secondary to complaint of increased urinary frequency over the past 2 weeks and also some right-sided flank pain. Reports chills last night but no documented fever. His pain is moderate in severity. Denies dysuria or hematuria. He follows with his urologist and was recently started on Flomax for enlarged prostate. Review of Systems Review of Systems All other ROS is negative unless otherwise stated in HPI Current Medications Current Medications Current Medications Medications (Trade) Dose Ordered Sig/Grace Start Time Stop Time Status Last Admin Dose Admin Ceftriaxone Sodium (Rocephin Im) 1 gm 1X ONCE 05/27/19 09:00 05/27/19 09:01 DC 05/27/19 09:20 1 GM Allergies Allergies Allergies Coded Allergies Type Severity Reaction Last Updated Verified No Known Drug Allergies 05/03/13 No Physical Exam Physical Exam See above Constitutional: Well developed, well nourished, no acute distress, non-toxic appearance. [] HENT: Normocephalic, atraumatic, bilateral external ears normal, oropharynx moist, no oral exudates, nose normal. [] Eyes: PERRLA, EOMI, conjunctiva normal, no discharge. [] Neck: Normal range of motion, no tenderness, supple, no stridor. [] Cardiovascular:Heart rate regular rhythm, no murmur [] Lungs & Thorax: Bilateral breath sounds clear to auscultation [] Abdomen: Bowel sounds normal, soft, no tenderness, no masses, no pulsatile masses. [] Skin: Warm, dry, no erythema, no rash. [] Back: There is some mild right-sided flank tenderness. Extremities: No tenderness, no cyanosis, no clubbing, ROM intact, no edema. [] Neurologic: Alert and oriented X 3, normal motor function, normal sensory function, no focal deficits noted. [] Psychologic: Affect normal, judgement normal, mood normal. [] Current Patient Data Vital Signs Vital Signs Date Time Temp Pulse Resp B/P (MAP) Pulse Ox O2 Delivery O2 Flow Rate FiO2 05/27/19 09:18 102 16 136/84 (101) 100 Room Air 05/27/19 07:40 98.5 98.5 Lab Values Laboratory Tests Test 05/27/19 07:30 05/27/19 07:57 Urine Collection Type Unknown Urine Color Yellow Urine Clarity Cloudy Urine pH 6.0 Urine Specific [place] 1.020 Urine Protein 100 mg/dL (NEG-TRACE) Urine Glucose (UA) Negative mg/dL (NEG) Urine Ketones (Stick) 15 mg/dL (NEG) Urine Blood Large (NEG) Urine Nitrite Positive (NEG) Urine Bilirubin Negative (NEG) Urine Urobilinogen Dipstick 0.2 mg/dL (0.2 mg/dL) Urine Leukocyte Esterase Moderate (NEG) Urine RBC 11-20 /HPF (0-2) Urine WBC Tntc /HPF (0-4) Urine Squamous Epithelial Cells Occ /LPF Urine Bacteria Many /HPF (0-FEW) White Blood Count 3.5 x10^3/uL (4.0-11.0) L Red Blood Count 5.13 x10^6/uL (4.30-5.70) Hemoglobin 13.4 g/dL (13.0-17.5) Hematocrit 40.7 % (39.0-53.0) Mean Corpuscular Volume 79 fL (79-100) Mean Corpuscular Hemoglobin 26 pg (25-35) Mean Corpuscular Hemoglobin Concent 33 g/dL (31-37) Red Cell Distribution Width 14.6 % (11.5-14.5) H Platelet Count 205 x10^3/uL (140-400) Neutrophils (%) (Auto) 78 % (31-73) H Lymphocytes (%) (Auto) 7 % (24-48) L Monocytes (%) (Auto) 14 % (0-9) H Eosinophils (%) (Auto) 0 % (0-3) Basophils (%) (Auto) 0 % (0-3) Neutrophils # (Auto) 2.7 x10^3/uL (1.8-7.7) Lymphocytes # (Auto) 0.3 x10^3/uL (1.0-4.8) L Monocytes # (Auto) 0.5 x10^3/uL (0.0-1.1) Eosinophils # (Auto) 0.0 x10^3/uL (0.0-0.7) Basophils # (Auto) 0.0 x10^3/uL (0.0-0.2) Platelet Estimate Pending Sodium Level 136 mmol/L (136-145) Potassium Level 3.9 mmol/L (3.5-5.1) Chloride Level 99 mmol/L (98-107) Carbon Dioxide Level 30 mmol/L (21-32) Anion Gap 7 (6-14) Blood Urea Nitrogen 20 mg/dL (8-26) Creatinine 1.0 mg/dL (0.7-1.3) Estimated GFR (Cockcroft-Gault) 91.3 Glucose Level 139 mg/dL (70-99) H Calcium Level 8.9 mg/dL (8.5-10.1) Laboratory Tests 05/27/19 07:57 Laboratory Tests 05/27/19 07:57 EKG EKG [] Radiology/Procedures Radiology/Procedures CT ABDOMEN PELVIS WO CONTRAST Indication: Right flank pain, hematuria. Exposure: One or more of the following individualized dose reduction techniques were utilized for this examination: 1. Automated exposure control 2. Adjustment of the mA and/or kV according to patient size 3. Use of iterative reconstruction technique. Comparison: 10/12/2018 Technique: No intravenous contrast given. No oral contrast per request. Findings: Evaluation of solid viscera, bowel and vasculature is compromised by the noncontrast technique. Lung bases are clear. Mild basilar atelectasis. Liver and spleen appear unremarkable. The pancreas is difficult to separate from adjacent unopacified bowel loops but no definite attenuation abnormality. The adrenals demonstrate a slightly thickened morphology without discrete mass. Tiny nonobstructive calculus in the lateral right kidney. No evidence of right hydronephroureter or right ureteric calculus. Tiny nonobstructive calculus in the upper pole the left kidney. No left hydronephrosis or left ureteric calculus. No calcified gallstone. Aorta mildly calcified, without evidence of aneurysm. No significant pathologic lymph node enlargement. The stomach is not distended. No significant small bowel distention. No evidence of acute colitis. The appendix appears within normal limits. No evidence of pneumoperitoneum. No significant ascites. Urinary bladder appears unremarkable. Vertebral body height and alignment are intact. Mild degenerative spondylosis. No evidence of aggressive bone destruction. IMPRESSION: Tiny nonobstructive renal calculi bilaterally. No evidence of hydronephrosis or ureteric calculus. Electronically signed by: Lenny Camarillo MD (05/27/2019 10:09 AM) [facility][] Course & Med Decision Making Course & Med Decision Making Pertinent Labs and Imaging studies reviewed. (See chart for details) 0729: Patient is seen for right-sided flank pain and increasing urination with a history of urinary retention and possible ureteral stone. We'll start with urinalysis and basic labs to evaluate for UTI, ureterolithiasis. If the patient is unable to void completely will bladder scan to evaluate for urinary retention . 0855: This is workup is completed at this time and he does appear to have urinary tract infection with some blood so we'll get a CT scan to evaluate for possible stone. In the meantime I will give him 1 g of Rocephin intramuscularly. His labs are unremarkable except for mild leukopenia and upon reevaluation of the patient's labs in the past he has been mildly leukopenic at his last 2 visits. Bladder scan showed 14 mL of fluid. 1016: CT scan shows a very small nonobstructing renal consciousness. Patient's labs reveal urinary tract infection with possible extension into the kidney system the patient's symptoms. He is afebrile and his blood cell count is stable but slightly low. We'll start him on ciprofloxacin and Keflex to cover for urinary tract infection for 10 days. Patient is to return to the ER or follow-up with his primary care physician for worsening symptoms. He should also follow up with his primary care physician for leukopenia of unknown significance. 1027: I spoke with patient's primary care physician who is in agreement with the plan and will follow up in clinic. Dragon Disclaimer Dragon Disclaimer This electronic medical record was generated, in whole or in part, using a voice recognition dictation system. Departure Departure Impression: Primary Impression: Urinary tract infection Additional Impressions: Kidney stone Leukopenia Disposition: 01 HOME, SELF-CARE Condition: STABLE Referrals: LUIS MUÑOZ MD (PCP) Follow up next week to recheck urine and discuss leukopenia. Patient Instructions: Urinary Tract Infection Additional Instructions: Return to ED for worsening symptoms. Push fluids. Scripts Cephalexin (KEFLEX) 500 Mg Capsule 1 CAP PO Q8HRS for 10 Days, #30 CAP 0 Refills Prov: ONEAL VYAS DO 05/27/19 Ciprofloxacin (Ciprofloxacin) 500 Mg/5 Ml [place].mc.rec 500 MG PO BID for 10 Days, #20 MISC Prov: ONEAL VYAS DO 05/27/19 Problem Qualifiers ONEAL VYAS DO May 27, 2019 07:29
[2019-05-27 07:45] LABS: BILIRUBIN,URINE NEGATIVE (NEG); CLARITY,URINE CLOUDY; COLOR,URINE YELLOW; NITRITE,URINE POSITIVE (NEG); PROTEIN,URINE 100 mg/dL (NEG-TRACE); UROBILINOGEN,URINE 0.2 mg/dL (0.2 mg/dL)
[2019-05-27 08:23] LABS: BASO % 0 % (0-3); EOS % 0 % (0-3); HEMATOCRIT 40.7 % (39.0-53.0); HEMOGLOBIN 13.4 g/dL (13.0-17.5); LYMPH # 0.3 x10^3/uL (1.0-4.8); LYMPH % 7 % (24-48); MEAN CORPUSCULAR HEMOGLOBIN 26 pg (25-35); MEAN CORPUSCULAR HGB CONC 33 g/dL (31-37); MEAN CORPUSCULAR VOLUME 79 fL (79-100); MONO # 0.5 x10^3/uL (0.0-1.1); MONO % 14 % (0-9); NEUT # 2.7 x10^3/uL (1.8-7.7); NEUT % 78 % (31-73); PLATELET COUNT 205 x10^3/uL (140-400); RED BLOOD COUNT 5.13 x10^6/uL (4.30-5.70); RED CELL DISTRIBUTION WIDTH 14.6 % (11.5-14.5); WHITE BLOOD COUNT 3.5 x10^3/uL (4.0-11.0)
[2019-05-27 08:26] LABS: CALCIUM 8.9 mg/dL (8.5-10.1); GFR 91.3; POTASSIUM 3.9 mmol/L (3.5-5.1)
[2019-05-27 08:29] LABS: SQUAMOUS EPITHELIAL CELL,UR OCC /LPF
[2019-05-27 08:30] LABS: BACTERIA,URINE MANY /HPF (0-FEW); WBC,URINE TNTC /HPF (0-4)
[2019-05-27] MEDS ORDERED: cefTRIAXone IM 1 GM VIAL IM ONE (09:00)
--- NOTE | 2019-05-27 10:12 | RAD ---
CT ABDOMEN PELVIS WO CONTRAST Indication: Right flank pain, hematuria. Exposure: One or more of the following individualized dose reduction techniques were utilized for this examination: 1. Automated exposure control 2. Adjustment of the mA and/or kV according to patient size 3. Use of iterative reconstruction technique. Comparison: 10/12/2018 Technique: No intravenous contrast given. No oral contrast per request. Findings: Evaluation of solid viscera, bowel and vasculature is compromised by the noncontrast technique. Lung bases are clear. Mild basilar atelectasis. Liver and spleen appear unremarkable. The pancreas is difficult to separate from adjacent unopacified bowel loops but no definite attenuation abnormality. The adrenals demonstrate a slightly thickened morphology without discrete mass. Tiny nonobstructive calculus in the lateral right kidney. No evidence of right hydronephroureter or right ureteric calculus. Tiny nonobstructive calculus in the upper pole the left kidney. No left hydronephrosis or left ureteric calculus. No calcified gallstone. Aorta mildly calcified, without evidence of aneurysm. No significant pathologic lymph node enlargement. The stomach is not distended. No significant small bowel distention. No evidence of acute colitis. The appendix appears within normal limits. No evidence of pneumoperitoneum. No significant ascites. Urinary bladder appears unremarkable. Vertebral body height and alignment are intact. Mild degenerative spondylosis. No evidence of aggressive bone destruction. IMPRESSION: Tiny nonobstructive renal calculi bilaterally. No evidence of hydronephrosis or ureteric calculus. Electronically signed by: Lenny Camarillo MD (05/27/2019 10:09 AM) [id number]
[2019-05-27] MEDS ORDERED: CEPH-264 PO (10:29)
[2019-05-27] MEDS ORDERED: CIPR500S3 PO (10:29)
[2019-05-27 10:30] VITALS: BP 131/75
[2019-05-27 12:16] LABS: % BANDS 2 % (0-9); % EOS 1 % (0-5); % LYMPHS 7 % (24-48); % MONOS 13 % (0-10); % SEGS 77 % (35-66); PLT ESTIMATE ADEQUATE (ADEQUATE)
== END 2019-05-27 10:54 | disposition home or self-care (01) ==
LOC: ER 06:39
DX: N39.0 Urinary tract infection, site not specified (principal); N20.0 Calculus of kidney; D72.819 Decreased white blood cell count, unspecified; K21.9 Gastro-esophageal reflux disease without esophagitis; I10 Essential (primary) hypertension; Z86.73 Personal history of transient ischemic attack (TIA), and cerebral infarction without residual deficits; Z87.891 Personal history of nicotine dependence
CPT/HCPCS: 36415; 74176; 80048; 81001; 85007; 85025; 87086; 96372; 99284; J0696; 87186

== ENCOUNTER → 2019-06-18 | Outpatient (CLI) | payer OTHER ==
[2019-05-27 10:30] VITALS: BP 131/75
[~2019-06-18] MED LIST changes: +CEPH-264 PO; +CIPR500S3 PO
--- NOTE | 2019-06-18 16:47 | RAD ---
EXAMINATION: Magnetic resonance imaging (MRI) of the lumbar spine without contrast 06/18/2019 3:30 PM HISTORY: Low back pain. TECHNIQUE: Multiplanar multi-weighted MRI of the lumbar spine was performed without intravenous contrast using the standard lumbar spine protocol. Contrast information: None administered. COMPARISON: None available at the time of image interpretation FINDINGS: The alignment of the lumbar spine is normal. Mild heterogeneity of the marrow may reflect areas of fatty marrow replacement. Mild intramarginal osteophytosis is noted from L1-L2 through L5-S1. There are no compression fractures. The conus medullaris terminates at the level of L1. The distal spinal cord signal intensity is normal. Intervertebral disks have normal height and signal intensity. There are no annular fissures identified. Limited views of the abdomen and pelvis show no soft tissue abnormality. The aorta is normal. L1-L2: There is mild disc bulge. Mild facet arthropathy. Mild left neuroforaminal stenosis. No spinal canal stenosis. L2-L3: There is mild disc bulge. Mild facet arthropathy. Mild bilateral neuroforaminal stenosis. No spinal canal stenosis. L3-L4: There is a mild/moderate disc bulge. Mild facet arthropathy. There is mild to moderate bilateral neuroforaminal stenosis. No spinal canal stenosis. L4-L5: There is a disc bulge with right foraminal and far lateral disc protrusion. There is moderate right and mild left facet arthropathy. Moderate bilateral neuroforaminal stenosis. No spinal canal stenosis. L5-S1: There is mild disc bulge. There is a facet arthropathy. Mild to moderate right and mild left neuroforaminal stenosis. No spinal canal stenosis. IMPRESSION: Mild degenerative changes of the lumbar spine as described in detail above. Electronically signed by: Marla Merino MD (06/18/2019 4:44 PM) [id number]
== END | disposition home or self-care (01) ==
LOC: MRI 08:38
PROVIDERS: ATTEND Physical Medicine & Rehabilitation
DX: M47.816 Spondylosis without myelopathy or radiculopathy, lumbar region (principal); M48.061 Spinal stenosis, lumbar region without neurogenic claudication; M51.26 Other intervertebral disc displacement, lumbar region; G95.81 Conus medullaris syndrome; M41.27 Other idiopathic scoliosis, lumbosacral region; M46.86 Other specified inflammatory spondylopathies, lumbar region
CPT/HCPCS: 72148

== ENCOUNTER 2020-05-27 00:27 | Emergency (ER) | payer OTHER ==
[~2020-05-27] VITALS: Ht 177.8 cm; Wt 86.4 kg
[~2020-05-27 00:27] MED LIST changes: +AMLO-187 PO; -AMLO10TA8 PO; +DEXT10TA23 PO; +FINA5TAB PO
[2020-05-27] MEDS ORDERED: CLIN300C9 PO (00:52)
--- NOTE | 2020-05-27 00:52 | PHYS DOC ---
Past Medical History Past Medical History: Anxiety, Bipolar, Constipation, CVA, Depression, GERD, Hypertension Additional Past Medical Histor: URINARY RETENTION, chronic pain Past Surgical History: Other Additional Past Surgical Histo: inguinal hernia repair Smoking Status: Never Smoker Alcohol Use: None Drug Use: None, Cocaine General Adult EDM: Chief Complaint: FINGER INJURY HPI: HPI: Patient is a 65 year old [f__sex] who presents with [] Review of Systems: Review of Systems: Constitutional: Denies fever or chills. [] Eyes: Denies change in visual acuity. [] HENT: Denies nasal congestion or sore throat. [] Respiratory: Denies cough or shortness of breath. [] Cardiovascular: Denies chest pain or edema. [] GI: Denies abdominal pain, nausea, vomiting, bloody stools or diarrhea. [] : Denies dysuria. [] Musculoskeletal: Denies back pain or joint pain. [] Integument: Denies rash. [] Neurologic: Denies headache, focal weakness or sensory changes. [] Endocrine: Denies polyuria or polydipsia. [] Lymphatic: Denies swollen glands. [] Psychiatric: Denies depression or anxiety. [] Heart Score: Risk Factors: Risk Factors: DM, Current or recent (<one month) smoker, HTN, HLP, family history of CAD, obesity. Risk Scores: Score 0 - 3: 2.5% MACE over next 6 weeks - Discharge Home Score 4 - 6: 20.3% MACE over next 6 weeks - Admit for Clinical Observation Score 7 - 10: 72.7% MACE over next 6 weeks - Early Invasive Strategies Current Medications: Current Medications Medications (Trade) Dose Ordered Sig/Grace Start Time Stop Time Status Last Admin Dose Admin Neomycin/ Polymyxin/ Bacitracin (Triple Antibiotic Ointment) 1 pkt 1X ONCE 05/27/20 00:45 05/27/20 00:46 UNV Allergies: Allergies: Allergies Coded Allergies Type Severity Reaction Last Updated Verified No Known Drug Allergies 05/03/13 No Physical Exam: PE: Constitutional: Well developed, well nourished, no acute distress, non-toxic appearance. [] HENT: Normocephalic, atraumatic, bilateral external ears normal, oropharynx moist, no oral exudates, nose normal. [] Eyes: PERRLA, EOMI, conjunctiva normal, no discharge. [] Neck: Normal range of motion, no tenderness, supple, no stridor. [] Cardiovascular:Heart rate regular rhythm, no murmur [] Lungs & Thorax: Bilateral breath sounds clear to auscultation [] Abdomen: Bowel sounds normal, soft, no tenderness, no masses, no pulsatile masses. [] Skin: Warm, dry, no erythema, no rash. [] Back: No tenderness, no CVA tenderness. [] Extremities: No tenderness, no cyanosis, no clubbing, ROM intact, no edema. [] Neurologic: Alert and oriented X 3, normal motor function, normal sensory function, no focal deficits noted. [] Psychologic: Affect normal, judgement normal, mood normal. [] EKG: EKG: [] Radiology/Procedures: Radiology/Procedures: [] Course & Med Decision Making: Course & Med Decision Making Pertinent Labs and Imaging studies reviewed. (See chart for details) [] Dragon Disclaimer: Dragon Disclaimer: This electronic medical record was generated, in whole or in part, using a voice recognition dictation system. Departure Departure Impression: Primary Impression: Cellulitis of finger of right hand Disposition: 01 DC HOME SELF CARE/HOMELESS Condition: STABLE Referrals: LUIS MUÑOZ MD (PCP) Patient Instructions: Cellulitis, [id number] Additional Instructions: Take over the counter Tylenol and/or Ibuprofen for pain or discomfort. Do not soak your wound. You may shower. Clean wound daily with soap and water. Change dressing 2 times daily. Use over the counter antibiotic ointment with each dressing change. Scripts Clindamycin Hcl (CLINDAMYCIN HCL) 300 Mg Capsule 1 CAP PO TID for Infection for 7 Days, #21 CAP Prov: JULIANNE GARCIA DO 05/27/20 JULIANNE GARCIA DO May 27, 2020 00:52
[2020-05-27] MEDS ORDERED: NEOMY/BACITR/POLYMYXIN OINT PACKET. TP ONE (01:00)
[2020-05-27] MEDS ORDERED: CLINDAMYCIN HCL 150 MG CAPSULE. PO ONE (01:00)
[2020-05-27 01:10] VITALS: BP 115/59
== END 2020-05-27 01:30 | disposition home or self-care (01) ==
LOC: ER 00:27
DX: L03.011 Cellulitis of right finger (principal); F31.9 Bipolar disorder, unspecified; K21.9 Gastro-esophageal reflux disease without esophagitis; I10 Essential (primary) hypertension; Z86.73 Personal history of transient ischemic attack (TIA), and cerebral infarction without residual deficits
CPT/HCPCS: 99283

== ENCOUNTER 2021-02-10 20:39 | Inpatient (IN) | payer OTHER ==
[~2021-02-10] VITALS: Ht 157.5 cm; Wt 77.4 kg
[2021-02-10 20:00] VITALS: BP 164/96
[~2021-02-10 20:39] MED LIST changes: +CLIN-94 PO
[2021-02-10] MEDS ORDERED: ZOLPIDEM 5 MG TABLET. PO PRN (21:00)
[2021-02-10] MEDS ORDERED: PROCHLORPERAZINE 10 MG/2 ML VIAL. IV PRN (21:00)
[2021-02-10] MEDS ORDERED: ONDANSETRON PF 4 MG/2 ML VIAL. IVP PRN (21:00)
[2021-02-10] MEDS ORDERED: DOCUSATE SODIUM 100 MG CAPSULE. PO PRN (21:00)
[2021-02-10] MEDS ORDERED: LORazepam 0.5 MG TABLET PO PRN (21:00)
[2021-02-10] MEDS ORDERED: MORPHINE SULFATE 2 MG/ML INJ. IVP PRN (21:00)
[2021-02-10] MEDS ORDERED: DEXTROSE 50% 25 GM / 50ML DISP.SYRIN. IV PRN (21:00)
[2021-02-10] MEDS ORDERED: HYDROcodone/APAP 5/325MG 1 TAB TABLET PO PRN ×2 (21:00)
[2021-02-10] MEDS ORDERED: MORPHINE SULFATE 2 MG/ML INJ. IV PRN (21:00)
[2021-02-10] MEDS ORDERED: ACETAMINOPHEN 325 MG TABLET. PO PRN (21:00)
[2021-02-10] MEDS ORDERED: SENNOSIDES 8.6 MG TABLET PO PRN (21:00)
[2021-02-10] MEDS ORDERED: TAMS0.4C97 PO (21:08)
[2021-02-10] MEDS ORDERED: SUCR1ORA14 PO (21:08)
[2021-02-10] MEDS ORDERED: AMLO-187 PO (21:08)
[2021-02-10] MEDS ORDERED: OMEP40CA7 PO (21:08)
[2021-02-10] MEDS: IV NORMAL SALINE 1000ML BAG 1,000 ML IV SCH (23:10)
[2021-02-10 23:17] VITALS: BP 141/76
[2021-02-11] MEDS ORDERED: DEXT15TA PO (02:53)
[2021-02-11] MEDS ORDERED: OXYC1TAB22 PO (02:53)
[2021-02-11 03:07] VITALS: BP 146/97
[2021-02-11 07:30] VITALS: BP 161/94
[2021-02-11] MEDS: IV NORMAL SALINE 1000ML BAG 1,000 ML IV SCH ×2 (07:33→17:00)
[2021-02-11 07:48] LABS: BASO % 1 % (0-3); EOS % 1 % (0-3); HEMATOCRIT 44.4 % (39.0-53.0); HEMOGLOBIN 14.4 g/dL (13.0-17.5); LYMPH # 1.1 x10^3/uL (1.0-4.8); LYMPH % 28 % (24-48); MEAN CORPUSCULAR HEMOGLOBIN 27 pg (25-35); MEAN CORPUSCULAR HGB CONC 33 g/dL (31-37); MEAN CORPUSCULAR VOLUME 83 fL (79-100); MONO # 0.4 x10^3/uL (0.0-1.1); MONO % 9 % (0-9); NEUT # 2.4 x10^3/uL (1.8-7.7); NEUT % 61 % (31-73); PLATELET COUNT 250 x10^3/uL (140-400); RED BLOOD COUNT 5.37 x10^6/uL (4.30-5.70); RED CELL DISTRIBUTION WIDTH 16.8 % (11.5-14.5)
[2021-02-11 08:02] LABS: CALCIUM 8.2 mg/dL (8.5-10.1); CREATININE 0.8 mg/dL (0.7-1.3); GFR 117.8; MAGNESIUM 1.6 mg/dL (1.8-2.4); PHOSPHORUS 3.3 mg/dL (2.6-4.7); POTASSIUM 4.1 mmol/L (3.5-5.1)
[2021-02-11] MEDS ORDERED: TAMSULOSIN 0.4 MG CAP.ER.24H. PO PRN (10:00)
--- NOTE | 2021-02-11 10:55 | PDOC1 ---
History and Physical Date of Service: DOS: DATE: 02/11/21 TIME: 10:46 Chief Complaint: Problems: (1) Intussusception Chief Complain: abdominal pain History of Present Illness: HPI: Patient is 65-year-old male patient outside hospital yesterday or today due to epigastric and lower abdominal pain. Patient says that last week he was placed on a new medicine by his PCP for GERD treatment, looks like it was Prilosec. Still complaining of nausea and diarrhea. Denying any sort of systemic sort of illness. Denying any fevers, chest pain, shortness of breath, dysuria. At the outside hospital was given GI cocktail and pain control with some improvement in his abdominal pain. CT scan performed there showed small bowel intussusception. At that point he was sent here for surgical evaluation. Admitted to hospitalist. When I evaluated the patient he reported that this pain in his abdomen has been going on for about 5 months. He underwent an endoscopy at some point in said his doctor said there is inflammation and placed him on PPI. Hospitalist to go for gallbladder ultrasound but has not happened yet. Patient reports no improvement with PPI currently. Lab work at [facility] pretty unremarkable. Past Medical/Surgical History: PMH/PSH: BPH, back pain Allergies: Allergies: Coded Allergies: No Known Drug Allergies (Unverified , 02/10/21) Pt verbalized no allergies Family History: Family History: Reviewed with family no known Social History: Social History: Denies alcohol tobacco drug use Current Medications: Current Medications Current Medications Sennosides (Senna) 17.2 mg PRN BID PRN PO CONSTIPATION; Start 02/10/21 at 21:00 Docusate Sodium (Colace) 100 mg PRN DAILY PRN PO HARD STOOLS; Start 02/10/21 at 21:00 Ondansetron HCl (Zofran) 4 mg PRN Q6HRS PRN IVP NAUSEA/VOMITING 1ST CHOICE; Start 02/10/21 at 21:00 Dextrose (Dextrose 50%-Water Syringe) 12.5 gm PRN Q15MIN PRN IV SEE COMMENTS; Start 02/10/21 at 21:00 Sodium Chloride 1,000 ml @ 100 mls/hr Q10H IV Last administered on 02/11/21at 07:33; Start 02/10/21 at 21:00 Acetaminophen (Tylenol) 650 mg PRN Q4HRS PRN PO TEMP OVER 100.4F OR MILD PAIN; Start 02/10/21 at 21:00 Lorazepam (Ativan) 0.5 mg PRN Q6HRS PRN PO ANXIETY / AGITATION Last admini stered on 02/11/21at 09:25; Start 02/10/21 at 21:00 Lorazepam (Ativan Inj) 0.25 mg PRN Q4HRS PRN IV ANXIETY / AGITATION; Start 02/10/21 at 21:00 Acetaminophen/ Hydrocodone Bitart (Lortab 5/325) 1 tab PRN Q4HRS PRN PO MILD PAIN 1-3 Last administered on 02/10/21at 23:08; Start 02/10/21 at 21:00 Acetaminophen/ Hydrocodone Bitart (Lortab 5/325) 2 tab PRN Q4HRS PRN PO MODERATE PAIN, SEVERE PAIN; Start 02/10/21 at 21:00 Morphine Sulfate (Morphine Sulfate) 1 mg PRN Q1HR PRN IV MODERATE PAIN 4-6; Start 02/10/21 at 21:00 Morphine Sulfate (Morphine Sulfate) 2 mg PRN Q2HR PRN IVP SEVERE PAIN 7-10 Last administered on 02/11/21at 09:23; Start 02/10/21 at 21:00; Stop 02/11/21 at 20:59 Prochlorperazine Edisylate (Compazine) 10 mg PRN Q6HRS PRN IV NAUSEA/VOMITING 2ND CHOICE; Start 02/10/21 at 21:00 Zolpidem Tartrate (Ambien) 2.5 mg PRN QHS PRN PO INSOMNIA; Start 02/10/21 at 21:00 Amlodipine Besylate (Norvasc) 10 mg DAILY PO ; Start 02/11/21 at 11:00 Sucralfate (Carafate Oral Susp) 1 gm QID PO ; Start 02/11/21 at 13:00 Tamsulosin HCl (Flomax) 0.4 mg PRN DAILY PRN PO BLADDER SPASM; Start 02/11/21 at 10:00 Pantoprazole Sodium (Protonix) 40 mg BIDAC PO ; Start 02/11/21 at 11:00 Active Scripts Active Reported Percocet 10-325 Mg Tablet (Oxycodone/Acetaminophen) 1 Each Tablet 1 Tab PO PRN Q6HRS PRN Adderall 15 Mg Tablet (Dextroamphetamine/Amphetamine) 15 Mg Tablet 1 Tab PO DAILY MDD 1 Tablet(s) 5 Days Flomax (Tamsulosin Hcl) 0.4 Mg Cap.er.24h 0.4 Mg PO DAILY PRN Omeprazole 40 Mg Capsule.dr 1 Cap PO BID Sucralfate 1 Gm/10 Ml Oral.susp 1 Gm PO QID Amlodipine Besylate 10 Mg Tablet 10 Mg PO DAILY ROS: Review of Systems Review of System Unless noted in HPI 14 point review systems was negative Physical Exam: Vital Signs: Vital Signs Date Time Temp Pulse Resp B/P (MAP) Pulse Ox O2 Delivery O2 Flow Rate FiO2 02/11/21 09:23 20 Room Air 02/11/21 07:30 97.6 68 161/94 (116) 98 97.6 Physcial Exam: GEN: No apparent distress. Alert and oriented HEENT: Normal cephalic, atraumatic, external auditory canals are patent EYES: Extraocular muscles are intact, pupil are equally round and reactive to light and accommodation MUSCULOSKELETAL: Well developed , well nourished, good range of motion ENDOCRINE: No thyromegaly was palpated LYMPHATICS: No cervical chain or axillary nodes were noted HEMATOPOIETIC: No bruising NECK: Supple, no JVD, no thyromegaly was noted LUNGS: Clear to auscultation in all lung macdonald without rhonchi or wheezing HEART: RRR, S!, S2 present. Peripheral pulses intact, no obvious murmurs noted ABDOMEN: Soft, nontender. Positive bowel sounds, no organomegaly, normal bowel sounds EXTREMITIES: Without clubbing, cyanosis, or edema. Pedal pulses intact. Negative Homans sign NEUROLOGIC: Normal speech and tone. A&O x 3, moves all extremities, no obvious focal deficits PSYCHIATRIC: Normal affect, normal mood. Stable SKIN: No ulcerations or rashes, good skin turgor, no jaundice VASCULAR: Good capillary refill, neurovascular bundle appears to be intact Labs: Labs: Laboratory Tests Test 02/11/21 06:10 White Blood Count 4.0 x10^3/uL (4.0-11.0) Red Blood Count 5.37 x10^6/uL (4.30-5.70) Hemoglobin 14.4 g/dL (13.0-17.5) Hematocrit 44.4 % (39.0-53.0) Mean Corpuscular Volume 83 fL (79-100) Mean Corpuscular Hemoglobin 27 pg (25-35) Mean Corpuscular Hemoglobin Concent 33 g/dL (31-37) Red Cell Distribution Width 16.8 % (11.5-14.5) Platelet Count 250 x10^3/uL (140-400) Neutrophils (%) (Auto) 61 % (31-73) Lymphocytes (%) (Auto) 28 % (24-48) Monocytes (%) (Auto) 9 % (0-9) Eosinophils (%) (Auto) 1 % (0-3) Basophils (%) (Auto) 1 % (0-3) Neutrophils # (Auto) 2.4 x10^3/uL (1.8-7.7) Lymphocytes # (Auto) 1.1 x10^3/uL (1.0-4.8) Monocytes # (Auto) 0.4 x10^3/uL (0.0-1.1) Eosinophils # (Auto) 0.0 x10^3/uL (0.0-0.7) Basophils # (Auto) 0.0 x10^3/uL (0.0-0.2) Sodium Level 135 mmol/L (136-145) Potassium Level 4.1 mmol/L (3.5-5.1) Chloride Level 102 mmol/L (98-107) Carbon Dioxide Level 24 mmol/L (21-32) Anion Gap 9 (6-14) Blood Urea Nitrogen 12 mg/dL (8-26) Creatinine 0.8 mg/dL (0.7-1.3) Estimated GFR (Cockcroft-Gault) 117.8 Glucose Level 88 mg/dL (70-99) Calcium Level 8.2 mg/dL (8.5-10.1) Phosphorus Level 3.3 mg/dL (2.6-4.7) Magnesium Level 1.6 mg/dL (1.8-2.4) Laboratory Tests Test 02/11/21 06:10 White Blood Count 4.0 x10^3/uL (4.0-11.0) Red Blood Count 5.37 x10^6/uL (4.30-5.70) Hemoglobin 14.4 g/dL (13.0-17.5) Hematocrit 44.4 % (39.0-53.0) Mean Corpuscular Volume 83 fL (79-100) Mean Corpuscular Hemoglobin 27 pg (25-35) Mean Corpuscular Hemoglobin Concent 33 g/dL (31-37) Red Cell Distribution Width 16.8 % (11.5-14.5) Platelet Count 250 x10^3/uL (140-400) Neutrophils (%) (Auto) 61 % (31-73) Lymphocytes (%) (Auto) 28 % (24-48) Monocytes (%) (Auto) 9 % (0-9) Eosinophils (%) (Auto) 1 % (0-3) Basophils (%) (Auto) 1 % (0-3) Neutrophils # (Auto) 2.4 x10^3/uL (1.8-7.7) Lymphocytes # (Auto) 1.1 x10^3/uL (1.0-4.8) Monocytes # (Auto) 0.4 x10^3/uL (0.0-1.1) Eosinophils # (Auto) 0.0 x10^3/uL (0.0-0.7) Basophils # (Auto) 0.0 x10^3/uL (0.0-0.2) Sodium Level 135 mmol/L (136-145) Potassium Level 4.1 mmol/L (3.5-5.1) Chloride Level 102 mmol/L (98-107) Carbon Dioxide Level 24 mmol/L (21-32) Anion Gap 9 (6-14) Blood Urea Nitrogen 12 mg/dL (8-26) Creatinine 0.8 mg/dL (0.7-1.3) Estimated GFR (Cockcroft-Gault) 117.8 Glucose Level 88 mg/dL (70-99) Calcium Level 8.2 mg/dL (8.5-10.1) Phosphorus Level 3.3 mg/dL (2.6-4.7) Magnesium Level 1.6 mg/dL (1.8-2.4) Assessment/Plan Assessment/Plan Abdominal pain secondary to intussusception, history of BPH back pain GERD -Patient presented to [facility] yesterday with abdominal pain. Imaging and work-up there showed intussusception on CT scan recommended for transfer here. -Surgical consult for intussusception -No leukocytosis or apparent infectious signs. Hold antibiotics -We will try him on Protonix here. We will try IV. -N.p.o. until seen by surgery. -Home meds resumed as indicated -We will hold off on DVT prophylaxis for now. Can start every 8 heparin if no surgery -Plan of care discussed with bedside RN I spent 17 minutes discussing advance care planning with this patient. Justifications for Admission Other Justification possible SBO SB intusseception LOIS HENDRICKS MD Feb 11, 2021 10:55
[2021-02-11 11:00] VITALS: BP 164/80
[2021-02-11] MEDS ORDERED: PANTOPRAZOLE 40 MG TABLET.DR. PO SCH (11:00)
[2021-02-11] MEDS ORDERED: MORPHINE SULFATE 2 MG/ML INJ. IVP PRN (11:15)
[2021-02-11] MEDS: PANTOPRAZOLE IV PUSH 40 MG VIAL. IVP SCH ×2 (12:00→20:17)
--- NOTE | 2021-02-11 12:16 | PDOC2 ---
CONSULT Date of Consult Date of Consult DATE: 02/11/21 TIME: 12:11 Reason for Consult Reason for Consult: abd pain, intusseption Referring Physician Referring Physician: Dr. Weinstein Identification/Chief Complaint Chief Complaint LUQ abd pain Source Source: Chart review, Patient History of Present Illness Reason for Visit: 65 yo M with c/o several year hx of LUQ abd pain. Partially intentional weight loss 70 lbs. Previous EGD with gastritis within last few months. Colonoscopy 5 years ago. C/o pain in LUQ extending into rectum. Pain compromising work and lifestyle. Notes bloating feeling. Past Medical History Cardiovascular: HTN GI: Gastritis Renal/: Benign prostatic enlarg. Past Surgical History Past Surgical History: Hernia Repair ([facility] 18 years age) Family History Family History: Cancer, Coronary Artery Disease Social History No ALCOHOL: other (1/5 per week) Drugs: Cocaine (hx of crack quit 5 years ago), Marijuana Current Medications Current Medications Current Medications Sennosides (Senna) 17.2 mg PRN BID PRN PO CONSTIPATION; Start 02/10/21 at 21:00 Docusate Sodium (Colace) 100 mg PRN DAILY PRN PO HARD STOOLS; Start 02/10/21 at 21:00 Ondansetron HCl (Zofran) 4 mg PRN Q6HRS PRN IVP NAUSEA/VOMITING 1ST CHOICE; Start 02/10/21 at 21:00 Dextrose (Dextrose 50%-Water Syringe) 12.5 gm PRN Q15MIN PRN IV SEE COMMENTS; Start 02/10/21 at 21:00 Sodium Chloride 1,000 ml @ 100 mls/hr Q10H IV Last administered on 02/11/21at 07:33; Start 02/10/21 at 21:00 Acetaminophen (Tylenol) 650 mg PRN Q4HRS PRN PO TEMP OVER 100.4F OR MILD PAIN; Start 02/10/21 at 21:00 Lorazepam (Ativan) 0.5 mg PRN Q6HRS PRN PO ANXIETY / AGITATION Last administered on 02/11/21at 09:25; Start 02/10/21 at 21:00 Lorazepam (Ativan Inj) 0.25 mg PRN Q4HRS PRN IV ANXIETY / AGITATION; Start 02/10/21 at 21:00 Acetaminophen/ Hydrocodone Bitart (Lortab 5/325) 1 tab PRN Q4HRS PRN PO MILD PAIN 1-3 Last administered on 02/10/21at 23:08; Start 02/10/21 at 21:00 Acetaminophen/ Hydrocodone Bitart (Lortab 5/325) 2 tab PRN Q4HRS PRN PO MODERATE PAIN, SEVERE PAIN; Start 02/10/21 at 21:00 Morphine Sulfate (Morphine Sulfate) 1 mg PRN Q1HR PRN IV MODERATE PAIN 4-6; Start 02/10/21 at 21:00 Morphine Sulfate (Morphine Sulfate) 2 mg PRN Q2HR PRN IVP SEVERE PAIN 7-10 Last administered on 02/11/21at 09:23; Start 02/10/21 at 21:00; Stop 02/11/21 at 11:14; Status DC Prochlorperazine Edisylate (Compazine) 10 mg PRN Q6HRS PRN IV NAUSEA/VOMITING 2ND CHOICE; Start 02/10/21 at 21:00 Zolpidem Tartrate (Ambien) 2.5 mg PRN QHS PRN PO INSOMNIA; Start 02/10/21 at 21:00 Amlodipine Besylate (Norvasc) 10 mg DAILY PO ; Start 02/11/21 at 11:00 Sucralfate (Carafate Oral Susp) 1 gm QID PO ; Start 02/11/21 at 13:00 Tamsulosin HCl (Flomax) 0.4 mg PRN DAILY PRN PO BLADDER SPASM; Start 02/11/21 at 10:00 Pantoprazole Sodium (Protonix) 40 mg BIDAC PO ; Start 02/11/21 at 11:00; Stop 02/11/21 at 10:55; Status DC Pantoprazole Sodium (PROTONIX VIAL for IV PUSH) 40 mg BID IVP ; Start 02/11/21 at 12:00 Morphine Sulfate (Morphine Sulfate) 2 mg PRN Q1HR PRN IVP SEVERE PAIN 7-10; Start 02/11/21 at 11:15 Active Scripts Active Reported Percocet 10-325 Mg Tablet (Oxycodone/Acetaminophen) 1 Each Tablet 1 Tab PO PRN Q6HRS PRN Adderall 15 Mg Tablet (Dextroamphetamine/Amphetamine) 15 Mg Tablet 1 Tab PO DAILY MDD 1 Tablet(s) 5 Days Flomax (Tamsulosin Hcl) 0.4 Mg Cap.er.24h 0.4 Mg PO DAILY PRN Omeprazole 40 Mg Capsule.dr 1 Cap PO BID Sucralfate 1 Gm/10 Ml Oral.susp 1 Gm PO QID Amlodipine Besylate 10 Mg Tablet 10 Mg PO DAILY Allergies Allergies: Coded Allergies: No Known Drug Allergies (Unverified , 02/10/21) Pt verbalized no allergies ROS Gastrointestinal: Yes Abdominal Pain Physical Exam General: Alert, Oriented X3, Cooperative, mild distress HEENT: Atraumatic Lungs: Normal air movement Abdomen: Soft, Other (mild TTP LUQ) Extremities: No clubbing, No cyanosis Skin: No rashes, No breakdown Neuro: Normal speech, Sensation intact Psych/Mental Status: Mental status NL, Mood NL Vitals VITALS Vital Signs Date Time Temp Pulse Resp B/P (MAP) Pulse Ox O2 Delivery O2 Flow Rate FiO2 02/11/21 11:00 97.6 60 16 164/80 (108) 99 Room Air 97.6 Labs Labs Laboratory Tests Test 02/11/21 06:10 White Blood Count 4.0 x10^3/uL (4.0-11.0) Red Blood Count 5.37 x10^6/uL (4.30-5.70) Hemoglobin 14.4 g/dL (13.0-17.5) Hematocrit 44.4 % (39.0-53.0) Mean Corpuscular Volume 83 fL (79-100) Mean Corpuscular Hemoglobin 27 pg (25-35) Mean Corpuscular Hemoglobin Concent 33 g/dL (31-37) Red Cell Distribution Width 16.8 % (11.5-14.5) Platelet Count 250 x10^3/uL (140-400) Neutrophils (%) (Auto) 61 % (31-73) Lymphocytes (%) (Auto) 28 % (24-48) Monocytes (%) (Auto) 9 % (0-9) Eosinophils (%) (Auto) 1 % (0-3) Basophils (%) (Auto) 1 % (0-3) Neutrophils # (Auto) 2.4 x10^3/uL (1.8-7.7) Lymphocytes # (Auto) 1.1 x10^3/uL (1.0-4.8) Monocytes # (Auto) 0.4 x10^3/uL (0.0-1.1) Eosinophils # (Auto) 0.0 x10^3/uL (0.0-0.7) Basophils # (Auto) 0.0 x10^3/uL (0.0-0.2) Sodium Level 135 mmol/L (136-145) Potassium Level 4.1 mmol/L (3.5-5.1) Chloride Level 102 mmol/L (98-107) Carbon Dioxide Level 24 mmol/L (21-32) Anion Gap 9 (6-14) Blood Urea Nitrogen 12 mg/dL (8-26) Creatinine 0.8 mg/dL (0.7-1.3) Estimated GFR (Cockcroft-Gault) 117.8 Glucose Level 88 mg/dL (70-99) Calcium Level 8.2 mg/dL (8.5-10.1) Phosphorus Level 3.3 mg/dL (2.6-4.7) Magnesium Level 1.6 mg/dL (1.8-2.4) Laboratory Tests Test 02/11/21 06:10 White Blood Count 4.0 x10^3/uL (4.0-11.0) Red Blood Count 5.37 x10^6/uL (4.30-5.70) Hemoglobin 14.4 g/dL (13.0-17.5) Hematocrit 44.4 % (39.0-53.0) Mean Corpuscular Volume 83 fL (79-100) Mean Corpuscular Hemoglobin 27 pg (25-35) Mean Corpuscular Hemoglobin Concent 33 g/dL (31-37) Red Cell Distribution Width 16.8 % (11.5-14.5) Platelet Count 250 x10^3/uL (140-400) Neutrophils (%) (Auto) 61 % (31-73) Lymphocytes (%) (Auto) 28 % (24-48) Monocytes (%) (Auto) 9 % (0-9) Eosinophils (%) (Auto) 1 % (0-3) Basophils (%) (Auto) 1 % (0-3) Neutrophils # (Auto) 2.4 x10^3/uL (1.8-7.7) Lymphocytes # (Auto) 1.1 x10^3/uL (1.0-4.8) Monocytes # (Auto) 0.4 x10^3/uL (0.0-1.1) Eosinophils # (Auto) 0.0 x10^3/uL (0.0-0.7) Basophils # (Auto) 0.0 x10^3/uL (0.0-0.2) Sodium Level 135 mmol/L (136-145) Potassium Level 4.1 mmol/L (3.5-5.1) Chloride Level 102 mmol/L (98-107) Carbon Dioxide Level 24 mmol/L (21-32) Anion Gap 9 (6-14) Blood Urea Nitrogen 12 mg/dL (8-26) Creatinine 0.8 mg/dL (0.7-1.3) Estimated GFR (Cockcroft-Gault) 117.8 Glucose Level 88 mg/dL (70-99) Calcium Level 8.2 mg/dL (8.5-10.1) Phosphorus Level 3.3 mg/dL (2.6-4.7) Magnesium Level 1.6 mg/dL (1.8-2.4) Images Images CT with LUQ intusseption Assessment/Plan Assessment/Plan abd pain will ask GI to comment Reportedly normal US, PIPPDA not completed will check SBFT in AM to evaluate for intusseption d/w pt and pt's supportive SO. Thanks for consult! EMA CASTILLO MD Feb 11, 2021 12:15
[2021-02-11] MEDS: SUCRALFATE 1 GM/10 ML ORAL.SUSP. PO SCH ×3 (13:00→20:16)
--- NOTE | 2021-02-11 13:46 | PDOC2 ---
GI CONSULT Date of Service: DATE: 02/11/21 TIME: 13:28 Reason For Consult: Abdominal pain/abnormal imaging. HPI: HPI: 65 y/o male with long-standing abdominal pain. Describes typical heartburn, epigastric/chest pain, LUQ pain. EGD [address] Suzanne Serrano here with "inflammation". Recent EGD in the [employer] system I cannot locate at [facility] (perhaps had at [facility]). On PPI's for a long time with waning effect per him. Most recently given Nexium 40mg daily and sucralfate qid but only for a very short time. Only recently taking PPI in optimal fashion. Denies antacids do anything. Seen at [facility] ER where CT showed SB intussuseption, however no sypmtoms seem referable to this. Dnies N, V. Says daily symptoms, not episodic. Historically negative sonogram. PIPIDA apparently planned outside, but tracer not available so not done. No liver or pancreatic history. Smokes marijuana. Only occasional alcohol. Denies diarrhea, constipation, or overt bleeding. Occasional transient sharp pain in abdomen occurring at random. Wt/appetite OK. GIFH noteworthy for gastric cancer in father. Had colonoscopy 6 years ago with polyps. PMH: PMH: Asthma, BPH, OA, HTN, ADHD, chronic back pain. S/p VHR. FH: Family History: No pertinent hx Social History: Smoke: No ALCOHOL: occassional Drugs: Marijuana ROS: GEN: Denies fevers, chills, sweats HEENT: Denies blurred vision, sore throat CV: Denies chest pain RESP: Denies shortness of air, cough GI: Per HPI : Denies hematuria, dysuria ENDO: Denies weight changes NEURO: Denies confusion, dizziness MSK: Denies weakness, joint pain/swelling SKIN: Denies jaundice, pruritus Vitals: Vitals: Vital Signs Date Time Temp Pulse Resp B/P (MAP) Pulse Ox O2 Delivery O2 Flow Rate FiO2 02/11/21 11:00 97.6 60 16 164/80 (108) 99 Room Air 97.6 Labs: Labs: Laboratory Tests Test 02/11/21 06:10 White Blood Count 4.0 x10^3/uL (4.0-11.0) Red Blood Count 5.37 x10^6/uL (4.30-5.70) Hemoglobin 14.4 g/dL (13.0-17.5) Hematocrit 44.4 % (39.0-53.0) Mean Corpuscular Volume 83 fL (79-100) Mean Corpuscular Hemoglobin 27 pg (25-35) Mean Corpuscular Hemoglobin Concent 33 g/dL (31-37) Red Cell Distribution Width 16.8 % (11.5-14.5) Platelet Count 250 x10^3/uL (140-400) Neutrophils (%) (Auto) 61 % (31-73) Lymphocytes (%) (Auto) 28 % (24-48) Monocytes (%) (Auto) 9 % (0-9) Eosinophils (%) (Auto) 1 % (0-3) Basophils (%) (Auto) 1 % (0-3) Neutrophils # (Auto) 2.4 x10^3/uL (1.8-7.7) Lymphocytes # (Auto) 1.1 x10^3/uL (1.0-4.8) Monocytes # (Auto) 0.4 x10^3/uL (0.0-1.1) Eosinophils # (Auto) 0.0 x10^3/uL (0.0-0.7) Basophils # (Auto) 0.0 x10^3/uL (0.0-0.2) Sodium Level 135 mmol/L (136-145) Potassium Level 4.1 mmol/L (3.5-5.1) Chloride Level 102 mmol/L (98-107) Carbon Dioxide Level 24 mmol/L (21-32) Anion Gap 9 (6-14) Blood Urea Nitrogen 12 mg/dL (8-26) Creatinine 0.8 mg/dL (0.7-1.3) Estimated GFR (Cockcroft-Gault) 117.8 Glucose Level 88 mg/dL (70-99) Calcium Level 8.2 mg/dL (8.5-10.1) Phosphorus Level 3.3 mg/dL (2.6-4.7) Magnesium Level 1.6 mg/dL (1.8-2.4) Labs pretty unrevealing. Allergies: Coded Allergies: No Known Drug Allergies (Unverified , 02/10/21) Pt verbalized no allergies Medications: Current Medications Medications (Trade) Dose Ordered Sig/Grace Route PRN Reason Start Time Stop Time Status Last Admin Dose Admin Sodium Chloride 1,000 ml @ 100 mls/hr Q10H IV 02/10/21 21:00 02/11/21 07:33 Lorazepam (Ativan) 0.5 mg PRN Q6HRS PRN PO ANXIETY / AGITATION 02/10/21 21:00 02/11/21 09:25 Acetaminophen/ Hydrocodone Bitart (Lortab 5/325) 1 tab PRN Q4HRS PRN PO MILD PAIN 1-3 02/10/21 21:00 02/10/21 23:08 Morphine Sulfate (Morphine Sulfate) 2 mg PRN Q2HR PRN IVP SEVERE PAIN 7-10 02/10/21 21:00 02/11/21 11:14 DC 02/11/21 09:23 Imaging: Imaging: Reviewed CT at [facility]. PE: GEN: NAD HEENT: Atraumatic, PERRLA LUNGS: CTAB HEART: RRR, no murmurs ABD: NABS, S/ND/NT, no masses EXTREMITY: No edema SKIN: No rashes, no jaundice NEURO/PSYCH: A & O 3 A/P: A/P: IMP: Long-standing symptoms c/w GERD. Only recently taking PPI correctly and may have been losing some effect. Abnormal CT. Transient intussuseption not that rare on CT's and really has no symptoms referable to this. H/o polyps. Would be due for surveillance. FH of gastric cancer; most of these in this country related to H.pylori infection. His status not known. REC: Continue PPI; move to po route soonest as more effective po than IV. Await SBFT per surgery. Will try to find path on old scopes here. Do PIPIDA? OK with me to feed after SBFT. Outpatient colonoscopy. --other pending. JULIANNE GODFREY MD Feb 11, 2021 13:46
[2021-02-11 19:05] VITALS: BP 153/93
[2021-02-11 23:00] VITALS: BP 150/86
[2021-02-12 03:00] VITALS: BP 138/94
[2021-02-12] MEDS: IV NORMAL SALINE 1000ML BAG 1,000 ML IV SCH (04:38)
[2021-02-12 07:00] VITALS: BP 149/86
[2021-02-12] MEDS ORDERED: BARIUM SULFATE 60% 355 ML SUSP PO ONE (07:00)
[2021-02-12 07:09] LABS: BASO % 1 % (0-3); EOS % 1 % (0-3); HEMATOCRIT 48.9 % (39.0-53.0); HEMOGLOBIN 16.3 g/dL (13.0-17.5); LYMPH # 1.4 x10^3/uL (1.0-4.8); LYMPH % 31 % (24-48); MEAN CORPUSCULAR HEMOGLOBIN 27 pg (25-35); MEAN CORPUSCULAR HGB CONC 33 g/dL (31-37); MEAN CORPUSCULAR VOLUME 82 fL (79-100); MONO # 0.5 x10^3/uL (0.0-1.1); MONO % 10 % (0-9); NEUT # 2.5 x10^3/uL (1.8-7.7); NEUT % 57 % (31-73); PLATELET COUNT 282 x10^3/uL (140-400); RED BLOOD COUNT 5.96 x10^6/uL (4.30-5.70); RED CELL DISTRIBUTION WIDTH 16.5 % (11.5-14.5); WHITE BLOOD COUNT 4.4 x10^3/uL (4.0-11.0)
[2021-02-12 07:15] LABS: CALCIUM 8.7 mg/dL (8.5-10.1); CREATININE 0.9 mg/dL (0.7-1.3); GFR 102.8; MAGNESIUM 1.8 mg/dL (1.8-2.4)
--- NOTE | 2021-02-12 08:26 | RAD ---
EXAM: ULTRASOUND ABDOMEN LIMITED CLINICAL HISTORY: abd pain, eval ruq COMPARISON: None available. TECHNIQUE: Limited ultrasound examination of the right upper quadrant of the abdomen was performed. FINDINGS: The pancreas is mostly obscured by overlying bowel gas.. Liver: 14.5 cm in length. The hepatic margin is smooth and the hepatic echogenicity is normal. The re are no focal liver lesions. Flow seen within the portal veins. Biliary: No cholelithiasis. Echogenic material dependently within the gallbladder likely sludge. No w all thickening or pericholecystic fluid. There is no pain with direct transducer pressure over the g allbladder. Common bile duct measures 0.2 cm. Right Kidney: 9.9 cm in bipolar length. Normal renal cortical echotexture and thickness. No focal josy al lesion, shadowing renal calculus or hydronephrosis. Visualized portions of the abdominal aorta and inferior vena cava are unremarkable. There is no free fluid in the subhepatic space. IMPRESSION: 1. Echogenic material within the gallbladder likely sludge. 2. No sonographic evidence for acute cholecystitis. Electronically signed by: Maximino Thomas MD (02/12/2021 8:24 AM) [id number]
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
[2021-02-12] MEDS: SUCRALFATE 1 GM/10 ML ORAL.SUSP. PO SCH (10:23)
[2021-02-12] MEDS: PANTOPRAZOLE IV PUSH 40 MG VIAL. IVP SCH (10:23)
--- NOTE | 2021-02-12 10:45 | NUR ---
SW following. Discussed with RN, pt from home, room air, clear liquid diet. pt having an abdominal series today. GI and Surgery following. RN advised no SW needs at this time. SW will continue to follow.
--- NOTE | 2021-02-12 10:46 | PDOC ---
[employer] PROGRESS NOTE Date of Service DOS: DATE: 02/12/21 TIME: 10:45 Chief Complaint Chief Complaint A/P: Long-standing symptoms c/w GERD. Only recently taking PPI correctly and may have been losing some effect. Added Carafate with improvement. Has outpatient prescriptions. Abnormal CT. Transient intussuseption not that rare on CT's and really has no symptoms. Small bowel series negative. Needs outpatient colonoscopy History of Present Illness History of Present Illness 65 y/o male with long-standing abdominal pain. Describes typical heartburn, epigastric/chest pain, LUQ pain. EGD [address] Suzanne Serrano here with "inflammation". Recent EGD in the [facility] system I cannot locate at [facility] (perhaps had at [facility]). On PPI's for a long time with waning effect per him. Most recently given Nexium 40mg daily and sucralfate qid but only for a very short time. Only recently taking PPI in optimal fashion. Denies antacids do anything. Seen at [facility] ER where CT showed SB intussuseption, however no sypmtoms seem referable to this. Dnies N, V. Says daily symptoms, not episodic. Historically negative sonogram. PIPIDA apparently planned outside, but tracer not available so not done. No liver or pancreatic history. Smokes marijuana. Only occasional alcohol. Denies diarrhea, constipation, or overt bleeding. Occasional transient sharp pain in abdomen occurring at random. Wt/appetite OK. GIFH noteworthy for gastric cancer in father. Had colonoscopy 6 years ago with polyps. Pain improved with twice daily PPI and Carafate tolerating liquid diet asking to have diet advanced. Reviewed small bowel series no signs of intussusception. Discussed advancing his diet today discussed with GI will need outpatient colonoscopy. Pain not worsened potentially could discharge in the next day. Vitals/I&O Vitals/I&O: Vital Signs Date Time Temp Pulse Resp B/P (MAP) Pulse Ox O2 Delivery O2 Flow Rate FiO2 02/12/21 09:00 61 149/86 02/12/21 07:00 97.4 16 94 Room Air 97.4 I & O 02/11/21 02/11/21 02/12/21 15:00 23:00 07:00 Intake Total 500 ml Output Total 550 ml Balance -50 ml Physical Exam General: Alert, Oriented X3, Cooperative, mild distress Abdomen: Soft, Other (mild TTP LUQ) Extremities: No clubbing, No cyanosis Skin: No rashes, No breakdown Labs Labs: Laboratory Tests Test 02/12/21 06:30 White Blood Count 4.4 x10^3/uL (4.0-11.0) Red Blood Count 5.96 x10^6/uL (4.30-5.70) Hemoglobin 16.3 g/dL (13.0-17.5) Hematocrit 48.9 % (39.0-53.0) Mean Corpuscular Volume 82 fL (79-100) Mean Corpuscular Hemoglobin 27 pg (25-35) Mean Corpuscular Hemoglobin Concent 33 g/dL (31-37) Red Cell Distribution Width 16.5 % (11.5-14.5) Platelet Count 282 x10^3/uL (140-400) Neutrophils (%) (Auto) 57 % (31-73) Lymphocytes (%) (Auto) 31 % (24-48) Monocytes (%) (Auto) 10 % (0-9) Eosinophils (%) (Auto) 1 % (0-3) Basophils (%) (Auto) 1 % (0-3) Neutrophils # (Auto) 2.5 x10^3/uL (1.8-7.7) Lymphocytes # (Auto) 1.4 x10^3/uL (1.0-4.8) Monocytes # (Auto) 0.5 x10^3/uL (0.0-1.1) Eosinophils # (Auto) 0.0 x10^3/uL (0.0-0.7) Basophils # (Auto) 0.0 x10^3/uL (0.0-0.2) Sodium Level 136 mmol/L (136-145) Potassium Level 4.0 mmol/L (3.5-5.1) Chloride Level 102 mmol/L (98-107) Carbon Dioxide Level 27 mmol/L (21-32) Anion Gap 7 (6-14) Blood Urea Nitrogen 9 mg/dL (8-26) Creatinine 0.9 mg/dL (0.7-1.3) Estimated GFR (Cockcroft-Gault) 102.8 Glucose Level 99 mg/dL (70-99) Calcium Level 8.7 mg/dL (8.5-10.1) Magnesium Level 1.8 mg/dL (1.8-2.4) Comment Review of Relevant I have reviewed the following items jairo (where applicable) has been applied. Medications: Current Medications Medications (Trade) Dose Ordered Sig/Grace Route PRN Reason Start Time Stop Time Status Last Admin Dose Admin Amlodipine Besylate (Norvasc) 10 mg DAILY PO 02/11/21 11:00 02/11/21 17:00 Sucralfate (Carafate Oral Susp) 1 gm QID PO 02/11/21 13:00 02/12/21 10:23 Pantoprazole Sodium (PROTONIX VIAL for IV PUSH) 40 mg BID IVP 02/11/21 12:00 02/12/21 10:23 Morphine Sulfate (Morphine Sulfate) 2 mg PRN Q1HR PRN IVP SEVERE PAIN 7-10 02/11/21 11:15 02/11/21 18:07 Barium Sulfate (Liquid E-Z Paque) 710 ml 1X ONCE PO 02/12/21 07:00 02/12/21 07:01 DC 02/12/21 07:00 Justifications for Admission Other Justification possible SBO SB intusseception LOIS GLEASON MD Feb 12, 2021 10:46
--- NOTE | 2021-02-12 10:58 | RAD ---
CLINICAL HISTORY: Reason: intusseption / Spl. Instructions: / History: COMPARISON: CT 02/10/2021 TECHNIQUE: A small bowel follow-through study was performed. Barium contrast was ingested orally and multiple radiographs were obtained until barium reached the cecum. FINDINGS: The ordnance corps officer film demonstrates a nonobstructive bowel gas pattern. There are no abnormal calci fications projected in the region of the kidneys, bladder, or gallbladder. The serial films of barium traversing the small bowel to the cecum reveal a normal transit time. Con trast material is present in the colon after 90 minutes. Small bowel mucosal pattern and caliber is normal throughout. There is no evidence of obstruction o r filling defect. The terminal ileum appears normal. The intussusception described on previous CT is not seen today. IMPRESSION: 1. Normal small bowel follow through exam. 2. No definite intussusception is identified. Electronically signed by: Maximino Thomas MD (02/12/2021 10:56 AM) [id number]
[2021-02-12 11:00] VITALS: BP 156/92
--- NOTE | 2021-02-12 11:47 | PDOC ---
Date of Service: DATE: 02/12/21 TIME: 11:39 Subjective: Subjective: Upper abdominal "burning" and some nausea - better. Three watery stools and then a "little" stool yesterday. Mentions was told to not eat or drink anything after midnight in case he needs surgery. Also talks about h/o vertigo - was on medication for awhile but not now - has symptoms only occasionally. Wants the temperature in his room to be cooler. Objective: Objective: Office records: EGD 08/2020 with "gastritis" and probably reflux, no path. US and HIDA ordered and not done. Aggressive w/ staff here. Vital Signs: Vital Signs Date Time Temp Pulse Resp B/P (MAP) Pulse Ox O2 Delivery O2 Flow Rate FiO2 02/12/21 11:00 97.5 61 16 156/92 (113) 99 Room Air 97.5 Imaging: SBS IMPRESSION: 1. Normal small bowel follow through exam. 2. No definite intussusception is identified. Abd US IMPRESSION: 1. Echogenic material within the gallbladder likely sludge. 2. No sonographic evidence for acute cholecystitis. PE: GEN: walking around room - asks me to help him put his gown on - staff changing bedding, present LUNGS: CTAB HEART: RRR ABD: NABS, S/ND/NT NEURO/PSYCH: A & O 3, anxious A/P: H/o GERD Abnormal CT/transient intussusception - not on SBS H/o colon polyps - due for outpt colonoscopy FH gastric cancer -- Okay to try diet per GI. He'd like to wait for surgery recommendations. D/w nurse. Continue PPI - change to PO as able. Justicifation of Admission Dx: Justifications for Admission: Justification of Admission Dx: Yes JUAN AYALA Feb 12, 2021 11:47
--- NOTE | 2021-02-12 13:03 | PDOC3 ---
Discharge Summary Visit Information Date of Admission: Feb 10, 2021 Date of Discharge: Feb 12, 2021 Admitting Diagnosis: Intractable abdominal pain Final Diagnosis GERD Brief Hospital Course Allergies Allergies Coded Allergies Type Severity Reaction Last Updated Verified No Known Drug Allergies 02/10/21 No Vital Signs Vital Signs Date Time Temp Pulse Resp B/P (MAP) Pulse Ox O2 Delivery O2 Flow Rate FiO2 02/12/21 11:00 97.5 61 16 156/92 (113) 99 Room Air 97.5 Lab Results Laboratory Tests Test 02/11/21 06:10 02/12/21 06:30 White Blood Count 4.0 x10^3/uL (4.0-11.0) 4.4 x10^3/uL (4.0-11.0) Red Blood Count 5.37 x10^6/uL (4.30-5.70) 5.96 x10^6/uL (4.30-5.70) Hemoglobin 14.4 g/dL (13.0-17.5) 16.3 g/dL (13.0-17.5) Hematocrit 44.4 % (39.0-53.0) 48.9 % (39.0-53.0) Mean Corpuscular Volume 83 fL (79-100) 82 fL (79-100) Mean Corpuscular Hemoglobin 27 pg (25-35) 27 pg (25-35) Mean Corpuscular Hemoglobin Concent 33 g/dL (31-37) 33 g/dL (31-37) Red Cell Distribution Width 16.8 % (11.5-14.5) 16.5 % (11.5-14.5) Platelet Count 250 x10^3/uL (140-400) 282 x10^3/uL (140-400) Neutrophils (%) (Auto) 61 % (31-73) 57 % (31-73) Lymphocytes (%) (Auto) 28 % (24-48) 31 % (24-48) Monocytes (%) (Auto) 9 % (0-9) 10 % (0-9) Eosinophils (%) (Auto) 1 % (0-3) 1 % (0-3) Basophils (%) (Auto) 1 % (0-3) 1 % (0-3) Neutrophils # (Auto) 2.4 x10^3/uL (1.8-7.7) 2.5 x10^3/uL (1.8-7.7) Lymphocytes # (Auto) 1.1 x10^3/uL (1.0-4.8) 1.4 x10^3/uL (1.0-4.8) Monocytes # (Auto) 0.4 x10^3/uL (0.0-1.1) 0.5 x10^3/uL (0.0-1.1) Eosinophils # (Auto) 0.0 x10^3/uL (0.0-0.7) 0.0 x10^3/uL (0.0-0.7) Basophils # (Auto) 0.0 x10^3/uL (0.0-0.2) 0.0 x10^3/uL (0.0-0.2) Sodium Level 135 mmol/L (136-145) 136 mmol/L (136-145) Potassium Level 4.1 mmol/L (3.5-5.1) 4.0 mmol/L (3.5-5.1) Chloride Level 102 mmol/L (98-107) 102 mmol/L (98-107) Carbon Dioxide Level 24 mmol/L (21-32) 27 mmol/L (21-32) Anion Gap 9 (6-14) 7 (6-14) Blood Urea Nitrogen 12 mg/dL (8-26) 9 mg/dL (8-26) Creatinine 0.8 mg/dL (0.7-1.3) 0.9 mg/dL (0.7-1.3) Estimated GFR (Cockcroft-Gault) 117.8 102.8 Glucose Level 88 mg/dL (70-99) 99 mg/dL (70-99) Calcium Level 8.2 mg/dL (8.5-10.1) 8.7 mg/dL (8.5-10.1) Phosphorus Level 3.3 mg/dL (2.6-4.7) Magnesium Level 1.6 mg/dL (1.8-2.4) 1.8 mg/dL (1.8-2.4) Laboratory Tests Test 02/12/21 06:30 White Blood Count 4.4 x10^3/uL (4.0-11.0) Red Blood Count 5.96 x10^6/uL (4.30-5.70) Hemoglobin 16.3 g/dL (13.0-17.5) Hematocrit 48.9 % (39.0-53.0) Mean Corpuscular Volume 82 fL (79-100) Mean Corpuscular Hemoglobin 27 pg (25-35) Mean Corpuscular Hemoglobin Concent 33 g/dL (31-37) Red Cell Distribution Width 16.5 % (11.5-14.5) Platelet Count 282 x10^3/uL (140-400) Neutrophils (%) (Auto) 57 % (31-73) Lymphocytes (%) (Auto) 31 % (24-48) Monocytes (%) (Auto) 10 % (0-9) Eosinophils (%) (Auto) 1 % (0-3) Basophils (%) (Auto) 1 % (0-3) Neutrophils # (Auto) 2.5 x10^3/uL (1.8-7.7) Lymphocytes # (Auto) 1.4 x10^3/uL (1.0-4.8) Monocytes # (Auto) 0.5 x10^3/uL (0.0-1.1) Eosinophils # (Auto) 0.0 x10^3/uL (0.0-0.7) Basophils # (Auto) 0.0 x10^3/uL (0.0-0.2) Sodium Level 136 mmol/L (136-145) Potassium Level 4.0 mmol/L (3.5-5.1) Chloride Level 102 mmol/L (98-107) Carbon Dioxide Level 27 mmol/L (21-32) Anion Gap 7 (6-14) Blood Urea Nitrogen 9 mg/dL (8-26) Creatinine 0.9 mg/dL (0.7-1.3) Estimated GFR (Cockcroft-Gault) 102.8 Glucose Level 99 mg/dL (70-99) Calcium Level 8.7 mg/dL (8.5-10.1) Magnesium Level 1.8 mg/dL (1.8-2.4) Brief Hospital Course 65 y/o male with long-standing abdominal pain. Describes typical heartburn, epigastric/chest pain, LUQ pain. EGD [address] Suzanne Serrano here with "inflammation". Recent EGD in the [employer] [facility] system I cannot locate at [facility] (perhaps had at [facility]). On PPI's for a long time with waning effect per him. Most recently given Nexium 40mg daily and sucralfate qid but only for a very short time. Only recently taking PPI in optimal fashion. Denies antacids do anything. Seen at [facility] ER where CT showed SB intussuseption, however no sypmtoms seem referable to this. Dnies N, V. Says daily symptoms, not episodic. Historically negative sonogram. PIPIDA apparently planned outside, but tracer not available so not done. No liver or pancreatic history. Smokes marijuana. Only occasional alcohol. Denies diarrhea, constipation, or overt bleeding. Occasional transient sharp pain in abdomen occurring at random. Wt/appetite OK. GIFH noteworthy for gastric cancer in father. Had colonoscopy 6 years ago with polyps. 02/12: Pain improved with twice daily PPI and Carafate tolerating liquid diet asking to have diet advanced. Reviewed small bowel series no signs of intussusception. Discussed advancing his diet today discussed with GI will need outpatient colonoscopy. Pain not worsened potentially could discharge in the next day. Consults: General surgery and GI Problem list: Long-standing symptoms c/w GERD. Only recently taking PPI correctly and may have been losing some effect. Added Carafate with improvement. Has outpatient prescriptions. Abnormal CT. Transient intussuseption not that rare on CT's and really has no symptoms. Small bowel series negative. Needs outpatient colonoscopy Greater than 30 minutes spent on day of d/c. Patient left AGAINST MEDICAL ADVICE.. Nursing staff encouraged him to stay in the weight p.o. he asked his to take him home and no one to eat her food. Discharge Information Condition at Discharge: Improved Follow Up: Weeks (1) Disposition/Orders: D/C to Home Scheduled Amlodipine Besylate (Amlodipine Besylate) 10 Mg Tablet, 10 MG PO DAILY for HTN, (Reported) Entered as Reported by: YOEL BERNSTEIN on 02/10/212107 Last Taken: Unknown Dose on 02/09/21 0900 Last Action: Continued on 04/13/20 09 by LOIS HENDRICKS MD Dextroamphetamine/Amphetamine (Adderall 15 Mg Tablet) 15 Mg Tablet, 1 TAB PO DAILY for ADHD MDD 1 Tablet(s) for 5 Days, #5 Ref 0 (Reported) Entered as Reported by: YOEL BERNSTEIN on 02/11/21252 Last Taken: Unknown Dose on Unknown Date & Time Last Action: HELD on 02/11/21958 by LOIS HENDRICKS MD Omeprazole (Omeprazole) 40 Mg Capsule.dr, 1 CAP PO BID for acid reflex, #30 Ref 3 (Reported) Entered as Reported by: YOEL BERNSTEIN on 02/10/212107 Last Taken: Unknown Dose on 02/09/21 1400 Last Action: Converted on 02/11/21958 by LOIS HENDRICKS MD Sucralfate (Sucralfate) 1 Gm/10 Ml Oral.susp, 1 GM PO QID for abdominal, (Reported) Entered as Reported by: YOEL BERNSTEIN on 02/10/212107 Last Taken: UNKNOWN on 02/09/211899 Last Action: Continued on 02/11/21958 by LOIS HENDRICKS MD Scheduled PRN Oxycodone/Apap 10-325 (Percocet 10-325 Mg Tablet ) 1 Each Tablet, 1 TAB PO PRN Q6HRS PRN for PAIN, Ref 0 (Reported) Entered as Reported by: YOEL BERNSTEIN on 02/11/21252 Last Taken: Unknown Dose on 02/09/211999 Last Action: HELD on 02/11/21958 by LOIS HENDRICKS MD Tamsulosin Hcl (Flomax) 0.4 Mg Cap.er.24h, 0.4 MG PO DAILY PRN for BLADDER SPASM, (Reported) Entered as Reported by: YOEL BERNSTEIN on 02/10/212107 Last Taken: Unknown Dose on 02/09/211899 Last Action: Continued on 02/11/21958 by LOIS HENDRICKS MD Justicifation of Admission Dx: Justifications for Admission: Justification of Admission Dx: Yes LOIS GLEASON MD Feb 12, 2021 13:03
--- NOTE | 2021-02-12 15:36 | NUR ---
Discharge Note: VJ MACIAS [address] [place] [address] Discharge instructions and discharge home medications reviewed with Patient and a copy given. All questions have been answered and understanding verbalized. The following instructions and handouts were given: Patient left AMA. Discussed risks of leaving prior to physician approval. Patient verbalized understanding. Patient escorted to private vehicle by this RN and security consultant. Discontinued lines and drains: Peripheral IV discontinued and catheter intact. Patient discharged to AMA with Spouse via Ambulated
== END 2021-02-12 12:50 | disposition left against medical advice (07) | DRG 392 ==
LOC: 4 NORTH 20:39 → MERGE 20:39
PROVIDERS: ADMIT Internal Medicine; ATTEND Internal Medicine
DX: K21.9 Gastro-esophageal reflux disease without esophagitis (principal); Z20.822 Contact with and (suspected) exposure to COVID-19; F12.90 Cannabis use, unspecified, uncomplicated; I10 Essential (primary) hypertension; J45.909 Unspecified asthma, uncomplicated; N40.0 Benign prostatic hyperplasia without lower urinary tract symptoms; Z53.29 Procedure and treatment not carried out because of patient's decision for other reasons; Z80.0 Family history of malignant neoplasm of digestive organs; Z82.49 Family history of ischemic heart disease and other diseases of the circulatory system; Z87.19 Personal history of other diseases of the digestive system; F90.9 Attention-deficit hyperactivity disorder, unspecified type; G89.29 Other chronic pain
CPT/HCPCS: 36415; 74250; 76705; 80048; 83735; 84100; 85025; C9113; J2270; J7030; G0378